=== PATIENT | female | born 1930 | race Caucasian/White ===

== ENCOUNTER → 2016-08-30 | Day surgery (SDC) | payer MEDICARE ==
[~2016-08-30] MED LIST: AMLODIPINE BESY10 MG PO; ARAVA10 MG PO; BIOTIN1000 MCG PO; BIOTIN10000 MC1 PO; BIOTIN800 MCG PO; BLOOD PRESSURE; CALCIUM + D 6001 TA1 PO; CALCIUM + VITAM1 TAB PO; CEFDINIR300 M1 PO; CELECOXIB200 MG PO; CLEOCIN HCL300 M1 PO; DOXYCYCLINE HY100 M3 PO; FISH OIL 1,0001 CAP PO; FOLIC ACID PO; FOLIC ACID1 MG PO; HORMONE PILL; HUMIBID-LA600 MG PO; HYDROCODON-ACE1 EAC5 PO; HYDROCODON-ACE1 EAC9 PO; HYDROCODONE/APA1 T16 PO; IRON1 TAB PO; IRON325 MG PO; LEFLUNOMIDE10 MG PO; LEVAQUIN PO; LISINOPRIL PO; LISINOPRIL10 MG PO; LODINE PO; LODINE400 MG PO; LORTAB 7.5-3251 EACH PO; LORTAB 7.5-5001 TAB PO; LOW DOSE ASPIRI81 M1 PO; METHOTREXATE2.5 MG PO; METRONIDAZOLE PO; MORPHINE IR PO; MORPHINE SULFAT15 M3 PO; MORPHINE SULFAT15 MG PO; NABUMETONE PO; NEXIUM PO; NORCO 10/325 TA1 TAB PO; NORVASC10 MG PO; OMEPRAZOLE20 M2 PO; OMEPRAZOLE40 M1 PO; ONE DAILY MULTI1 TA3 PO; PAIN RELIEF325 M1 PO; PANTOPRAZOLE SO40 MG PO; PATIENT'S PHARMACY; PLAQUENIL200 MG PO; PREDNISONE PO; PREDNISONE5 MG PO; PRINIVIL10 MG PO; PRINIVIL20 M1 PO; PRINIVIL40 MG PO; PROTONIX PO; RELAFEN PO; SIMVASTATIN5 MG PO; TESSALON PERLE100 M1 PO; VALTREX PO; VITAMIN B12-FO1 EACH PO; ZOCOR PO; ZOCOR5 MG PO; ZOFRAN PO; [UNRECOGNIZED DRUG - OTHER] PO
--- NOTE | ~2016-08-30 | OR ---
Unit #: [id number] #: [id number] Patient: JOSE MCNAIR [id number] [address] [address] [id number] O MR#: [id number] NAME: JOSE MCNAIR ROOM: Date of Procedure: 08/30/2016 Admission Date: 08/30/2016 Surgeon: Brandon Ramirez M.D. : 1930 Attending Physician: Brandon Ramirez M.D. Primary Care Physician: Nona Philippe M.D. OPERATIVE REPORT JOB NOTE: CC: PA[facility] CENTER PREOPERATIVE DIAGNOSES 1. Back pain. 2. Spinal stenosis. 3. Radiculopathy. 4. Degenerative disk disease. POSTOPERATIVE DIAGNOSES 1. Back pain. 2. Spinal stenosis. 3. Radiculopathy. 4. Degenerative disk disease. PROCEDURE PERFORMED Caudal epidural steroid injection with intravenous sedation and fluoroscopic guidance for needle localization. INDICATIONS FOR PROCEDURE The patient is an 86-year-old female with back and right hip and lower extremity pains. She has multilevel multifactorial severe degenerative disk and spine disease, severe stenosis most significant at the L4-L5 level and also significant facet disease. In the past, epidural steroid injection helped for almost 3 months. Repeat injection was extremely difficult due to multilevel multifactorial degenerative change and was not as helpful. Plan is to proceed with a trial via caudal approach to hopefully eased the procedure on the patient to get a better result. DESCRIPTION OF PROCEDURE The patient was placed in a prone position. Standard monitors were applied. Sterile prep and drape of the sacral area was performed. The skin then overlying the sacral hiatus was localized with 1% lidocaine. An 18-gauge Black-I Roboticstead needle was then advanced via the sacral hiatus and caudal epidural space. The patient did not complain of pain or paresthesia. After confirming proper positioning with loss of resistance with radiographic contrast and fluoroscopy, a dose of 80 mg of Depo-Medrol and 6 mL of 0.125% bupivacaine were deposited. The patient tolerated the procedure otherwise well and was discharged to the recovery room in stable condition. Dictated by... Unit #: [id number] #: [id number] Patient: JOSE MCNAIR Brandon Ramirez M.D. LHP/modl TD: 08/31/2016 03:32 JOB #: [id number] OPERATIVE REPORT Page 1 of 1 X Brandon Ramirez MD X PROCEDURE OPERATIVE NOTE
== END | disposition home or self-care (01) ==
LOC: CCSC 09:56
DX: M51.16 Intervertebral disc disorders with radiculopathy, lumbar region (principal); M48.06 Spinal stenosis, lumbar region; I10 Essential (primary) hypertension; K21.9 Gastro-esophageal reflux disease without esophagitis; M19.90 Unspecified osteoarthritis, unspecified site; M06.9 Rheumatoid arthritis, unspecified
CPT/HCPCS: J1040; J2250

== ENCOUNTER → 2016-09-03 | Outpatient (CLI) | payer MEDICARE ==
--- NOTE | ~2016-09-03 | CR21 ---
[facility]. [facility] A Service of [facility] & [facility] RADIOLOGY TEXT RESULTS PATIENT: JOSE MCNAIR LOCATION: [facility] : 31 UNIT #: [id number] AGE: [address]: Michael Segovia MD SEX: F ORDER DR: [id number] [address] [address] [id number] O MR#: [id number] Acc #: [id number] NAME: JOSE MCNAIR : 1930 SEX: F STUDY DATE/TIME: 09/03/2016 15:13 UNIT: [facility] ROOM: STUDY DESCRIPTION: CR Ankle Min 3 Views Rt Attending Physician: Michael Segovia M.D. Ordering Physician: Santa Hamilton Primary Care Physician: Nona Philippe M.D. MEDICAL IMAGING REPORT This report is preliminary unless electronic signature is present. EXAM Right ankle 3 views INDICATIONS 86-year female with right ankle pain and swelling for 5 weeks. COMPARISON No comparisons. FINDINGS Ankle mortise intact. No fracture. No dislocation. No soft tissue swelling. Extensive vascular calcifications. Minimal calcaneal spurring. IMPRESSION No fracture or malalignment. Dictated by... Reji Patterson M.D. THIS IS AN ELECTRONICALLY VERIFIED REPORT Reji Patterson M.D. at 09/05/2016 9:06 AM ARS/to TD: 09/04/2016 11:22 JOB #: [id number] MEDICAL IMAGING REPORT Page 1 of 1
--- NOTE | ~2016-09-03 | CR127 ---
[facility]. [facility] A Service of [facility] & [facility] RADIOLOGY TEXT RESULTS PATIENT: JOSE MCNAIR LOCATION: [facility] : 31 UNIT #: [id number] AGE: [address]: Michael Segovia MD SEX: F ORDER DR: [id number] [place] [id number] O MR#: [id number] Acc #: [id number] NAME: JOSE MCNAIR : 1930 SEX: F STUDY DATE/TIME: 09/03/2016 15:13 UNIT: [facility] ROOM: STUDY DESCRIPTION: CR Foot Complete Min 3 View Rt Attending Physician: Michael Segovia M.D. Ordering Physician: Physician Non-Staff Primary Care Physician: Nona Philippe M.D. MEDICAL IMAGING REPORT This report is preliminary unless electronic signature is present. EXAM Right foot 3 views INDICATION 86-year-old female with right foot pain and swelling for 5 weeks. COMPARISON No comparisons FINDINGS There is degenerative change at the first MTP joint. No fracture or dislocation. Calcaneal spurring. Extensive vascular calcifications. IMPRESSION Degenerative change. No fracture. Dictated by... Reji Patterson M.D. THIS IS AN ELECTRONICALLY VERIFIED REPORT Reji Patterson M.D. at 09/05/2016 9:06 AM SILVIA/sowmya TD: 09/04/2016 11:15 JOB #: [id number] MEDICAL IMAGING REPORT Page 1 of 1
== END | disposition home or self-care (01) ==
LOC: SRAD 15:02
DX: M25.571 Pain in right ankle and joints of right foot (principal)
CPT/HCPCS: 73610; 73630

== ENCOUNTER → 2016-11-01 | Outpatient (CLI) | payer MEDICARE ==
[2016-11-01 12:33] LABS: HEMOGLOBIN 9.5 gm/dL (12.0-16.0); MEAN CORPUSCULAR HEMOGLOBIN 30.5 PG (28-34); MEAN CORPUSCULAR HGB CONC 30.5 g/dL (30-36); MEAN PLATELET VOLUME 7.8 FL (6.5-11.5); RED BLOOD COUNT 3.1 X10e (3.90-5.30); WHITE BLOOD COUNT 7.8 X10e3 (4.0-10.5)
== END | disposition home or self-care (01) ==
LOC: CLAB 11:55
PROVIDERS: Physician Assistant
DX: M25.511 Pain in right shoulder (principal); R60.0 Localized edema
CPT/HCPCS: 36415; 84550; 85027

== ENCOUNTER 2016-11-18 13:44 | Observation (INO) | payer MEDICARE ==
--- NOTE | ~2016-11-18 | DS ---
Unit #: [id number] #: [id number] Patient: JOSE MCNAIR [id number] [address] [address] [id number] I MR#: [id number] NAME: JOSE MCNAIR. ROOM: 237 Age: 86 Sex: F Admission Date: 11/18/2016 : 1930 Discharge Date: 11/22/2016 Attending Physician: Nona Philippe M.D. Primary Care Physician: Nona Philippe M.D. DISCHARGE SUMMARY DISCHARGE DIAGNOSES 1. Back pain status post spinal surgery evaluation status post negative workup. 2. Hypertension. 3. Rheumatoid arthritis. 4. Dyslipidemia. DISCHARGE MEDICATIONS 1. Prednisone 5 mg b.i.d., home dose. 2. Methotrexate 15 mg p.o. weekly, home dose. 3. Amlodipine 10 mg at bedtime. 4. Simvastatin 5 mg daily. 5. Lisinopril 5 mg daily. 6. Arava 20 mg daily. 7. Aspirin 81 mg daily. 8. Home [place] 7.5/325 mg 1 or 2 tablets q.4-6 hours p.r.n. pain. 9. MS Contin 15 mg p.o. b.i.d. 10. Calcium with vitamin D daily. 11. Biotin 800 mcg daily. 12. Folic acid 1 mg daily. DISPOSITION Going home with home health. Refuses rehab. CONSULTS ON THIS HOSPITAL STAY 1. Dr. George, spinal surgery. 2. Dr. Ramirez, pain management. DIAGNOSTIC STUDIES IMAGING: Bone scan, which was basically unremarkable without any occult fracture. No abnormal uptake. CT lumbar spine - Compression fractures at L1 and L2 are not significantly changed from previous. Status post kyphoplasty at these levels. Advanced multilevel degenerative disc disease. Findings have progressed since 2014. Degenerative levoscoliosis. Extensive atherosclerotic disease. Chest x-ray - Negative portable chest. No active disease. HISTORY OF PRESENT HOSPITAL STAY Please refer to H and P done by my colleague, Dr. Philippe, for initial presentation on this female. ACTIVE PROBLEMS AND DIAGNOSES Unit #: [id number] #: [id number] Patient: JOSE MCNAIR Intractable back pain status post evaluation per spinal surgery status post evaluation per pain management. Continue conservative management. Continue home pain meds. Hypertension. Resume home medications. History of rheumatoid arthritis. Continue home meds as above. Dyslipidemia. Continue statin. Anemia of chronic disease. Discharge date H and H 7.9 and 25.9, which have been stable. On admission her hemoglobin was 8.4. DISPOSITION Again, going home with home health. Refuses rehab. OUTPATIENT FOLLOW-UP 1. With Dr. Philippe in 2-3 days. 2. With pain management. Dictated by... Ganesh Chavez M.D. AMY/tasha TD: 11/22/2016 12:35 JOB #: [id number] DISCHARGE SUMMARY Page 1 of 1 X Ganesh Chavez MD X DISCHARGE SUMMARY
--- NOTE | ~2016-11-18 | CT98 ---
[facility] A Service of [facility] & [facility] RADIOLOGY TEXT RESULTS PATIENT: JOSE MCNAIR LOCATION: C2A 237 : 31 UNIT #: [id number] AGE: [address]: Nona Philippe MD SEX: F ORDER DR: [id number] [facility] [address] [facility]. [place], [place] [address] [id number] I MR#: [id number] Acc #: [id number] NAME: JOSE MCNAIR. : 1930 SEX: F STUDY DATE/TIME: 11/19/2016 11:28 UNIT: [facility] ROOM: [facility] STUDY DESCRIPTION: CT Lumbar Spine Wo Cont Attending Physician: Nona Philippe M.D. Ordering Physician: Nona Philippe M.D. Primary Care Physician: Nona Philippe M.D. MEDICAL IMAGING REPORT This report is preliminary unless electronic signature is present EXAM Lumbar spine CT 11/19 INDICATIONS Low back pain for 1.5 weeks. Patient unable to lay flat on back. No known trauma. TECHNIQUE Axial noncontrast images were obtained through the lumbar spine. Multiplanar reformats were obtained. This CT exam was performed with one or more of the following radiation dose reduction techniques: automatic exposure control, adjustment of mA and/or kV according to patient size, and iterative reconstruction. COMPARISON Abdomen and pelvis reformatted images from 05/22/2014. FINDINGS There is approximately 11 degrees of levoscoliosis in the lumbar spine. Minimal anterolisthesis of L3 on L4 is present. There are old compression fractures of L1 and L2, status post kyphoplasty at both levels. These fractures do not appear significantly changed. There is progressive multilevel degenerative disease noted. There is diffuse atherosclerotic disease, and the abdominal aorta is quite tortuous. Fluid collection is again seen in the cul-de-sac; it measures slightly larger today at about 6.0 x 4.4 cm, where it was previously 5.7 x 3.6 cm. As noted previously, this may be associated with the round ligament; it could be related to prior surgery such as a seroma. It can also potentially reflect a bladder diverticulum. At L5-S1, there is a broad-based disc osteophyte complex. There is hypertrophic bilateral facet arthropathy with some ligamentum flavum hypertrophy. There is severe left-side and moderate to severe right-sided STS. [facility] A Service of [facility] & [facility] RADIOLOGY TEXT RESULTS PATIENT: JOSE MCNAIR LOCATION: [place] [address] : 31 UNIT #: [id number] AGE: [address]: Nona Philippe MD SEX: F ORDER DR: neural foraminal narrowing and there is borderline central stenosis. At L4-5, there is a broad-based posterior disc osteophyte complex with hypertrophic facet arthropathy and ligamentum flavum hypertrophy. Findings are progressive from prior and there is severe central canal stenosis with severe bilateral neural foraminal narrowing, left worse than right. Additionally, there is a new posterior osteophyte within the canal measuring about 13 mm in height by about 7 mm in depth by about 15 mm in width. The donor fracture site is not seen. This could potentially reflect a calcified disc extrusion or some calcification in the posterior longitudinal ligament. This results in severe central canal stenosis as well above the level of the disc. At L3-4, there is a broad-based posterior disc osteophyte complex with facet arthropathy and ligamentum flavum hypertrophy. There is moderate to severe central canal stenosis. There is severe right-side and moderate to severe left-side neural foraminal narrowing as well. At L2-3, there is facet arthropathy and ligamentum flavum hypertrophy. There is broad-based posterior disc bulge. There is severe right-side foraminal stenosis with moderate to severe left-side foraminal stenosis. There is moderate narrowing of the central canal. At L1-2, there is a broad-based posterior disc bulge. There is facet arthropathy and ligamentum flavum hypertrophy. There is moderate to severe bilateral foraminal narrowing, left greater than right. At T12-L1, mild posterior disc bulge is seen with facet arthropathy. There is some left-side foraminal and canal stenosis due to retropulsion of the posterior-superior endplate to the left of midline. This is a chronic finding. IMPRESSION 1. Compression fractures at L1 and L2 are not significantly changed. Patient is status post kyphoplasty at these levels. 2. Advanced multilevel degenerative disc disease and facet arthropathy as detailed above. Findings have progressed since 2013. 3. Degenerative levoscoliosis. 4. Extensive atherosclerotic disease. STAT * RESULT Dictated by... Meng Thompson Jr., M.D. THIS IS AN ELECTRONICALLY VERIFIED REPORT [facility]. [facility] A Service of [facility] RADIOLOGY TEXT RESULTS PATIENT: JOSE MCNAIR LOCATION: [place] [address] : [birth year] UNIT #: [id number] AGE: [address]: Nona Philippe MD SEX: F ORDER DR: Meng Thompson Jr., M.D. at 11/19/2016 10:33 PM RLK/alexis TD: 11/19/2016 15:40 JOB #: [id number] MEDICAL IMAGING REPORT Page 1 of 1 COPY
--- NOTE | ~2016-11-18 | A ---
[facility] & [facility] Nutrition Therapy DATE: 11/19/16 Patient: JOSE MCNAIR Physician: TALHA Address: [address] [place] [address] Room/Bed: [address] [place] [address], Zip: [place] [address] Admit Date: 11/18/16 Date of : 31 Height: 5 2 Weight: 117 53.5 NUTRITIONAL ASSESSMENT: REASON: 5 PTS AND CONSULT RE: UNPLANNED WEIGHT LOSS (40#) DX: 86 Y.O. FEMALE ADMITTED FOR INTRACTABLE BACK PAIN PMH: BACK PAIN, DEGENERATIVE SPINAL DISEASE Anthropometrics: 5'2", 117# (53 KG), BMI 21 Labs: K+ 3.4, CA++ 7.7, ALB 2.8 Meds: PREDNISONE, ARAVA, ZESTRIL, ZOFRAN, NACL I/O & Bowel function: NO I/O INFO AVAILABLE. LAST BM 11/17. NO EDEMA NOTED. Skin Integrity: WNL Assessment: CHART REVIEWED, EVENTS NOTED. PT SEEN FOR 5 PTS AND CONSULT RE: UNPLANNED WEIGHT LOSS. PER MEDITECH AND PT REPORT, PT HAS HAD ~40#/25% BW WEIGHT LOSS OVER THE PAST 2 YEARS. PT AND PT'S FAMILY REPORTED THAT THE PT HAS HAD A POOR APPETITE AND PO INTAKE FOR PAST 2+ YEARS. PT REPORTS DRINKING ENSURE AT HOME. RD CASE MANAGEMENT ASSOCIATE ENCOURGAED ADEQUATE CALORIE AND PROTEIN INTAKE BY ADDING SUPPLEMENTS DAILY. RD OFFERED TO ORDER SUPPLEMENTS AND PT AGREED TO ENSURE TID WITH MEALS. RD WILL REMAIN AVAILABLE. Dx: UNINTENTIONAL WEIGHT LOSS R/T POOR PO INTAKE AND APPETITE AEB PT REPORTED 40#/25% BW WEIGHT LOSS OVER PAST 2 YEARS Intervention: 1. ENSURE SUPPLEMENTS TID 2. REGULAR DIET Monitoring, Evaluation and Goals: 1. WEIGHT; PREVENT FURTHER UNINTENTIONAL WEIGHT LOSS, PROMOTE HEALTHY WEIGHT MAINTENANCE 2. PO INTAKE; TOLERATE >50% OF ALL MEALS/SUPPLEMENTS Recommendations: 1. ENSURE VANILLA TID WITH MEALS 2. ENCOURAGE ADEQUATE PO INTAKE 3. ADD MULTIVITAMIN TO PT'S CURRENT MEDICATION REGIMEN 2' ADVANCED AGE, DECREASED PO [facility] Nutrition Therapy DATE: 11/19/16 Patient: JOSE MCNAIR Physician: TALHA Address: [address] [place], [place] [address] Room/Bed: [address] [place] [address], Zip: [place] [address] Admit Date: 11/18/16 Date of : [birth year] Height: 5 2 Weight: [address] WILL F/U PER PROTOCOL PT IS AT MODERATE NUTRITIONAL RISK Respectfully, GABRIELA TORO, CULINARY ARTS TEACHER FRANCIA WOODS MS, RD, LD [employer] [facility] cc: client file
--- NOTE | ~2016-11-18 | NM4 ---
[facility] A Service of [facility] & [facility] RADIOLOGY TEXT RESULTS PATIENT: JOSE MCNAIR LOCATION: A 237- : 31 UNIT #: [id number] AGE: [address]: Nona Philippe MD SEX: F ORDER DR: [id number] [facility] [address] [facility]. [place], [place] [address] [id number] I MR#: [id number] Acc #: [id number] NAME: JOSE MCNAIR. : 1930 SEX: F STUDY DATE/TIME: 11/21/2016 11:30 UNIT: [facility] ROOM: [facility] STUDY DESCRIPTION: NM Bone or Joint 3 Phase Study Attending Physician: Nona Philippe M.D. Ordering Physician: Nona Philippe M.D. Primary Care Physician: Nona Philipep M.D. MEDICAL IMAGING REPORT This report is preliminary unless electronic signature is present EXAM Three-phase bone scan. HISTORY 86-year-old male with pain in tailbone region. Patient slid out of recliner 2 1/[address] lumbar spine 11/19/2016. TECHNIQUE Three-phase bone scan was form over the hips and pelvis following the intravenous injection of 23.3 mCi technetium 99m MDP. This was followed by whole-body anterior and posterior acquisitions. EXAM Examination demonstrates normal symmetric flow to the pelvis. Immediate blood-pool imaging demonstrates normal vascular pool. Normal renal uptake. Delayed-phase imaging demonstrates minimal increased uptake in the lumbar spine consistent with degenerative uptake. No focally intense uptake is identified to suggest an acute fracture. No definitive uptake identified within the pelvis, sacrum, or coccyx region to suggest a fracture. Degenerative uptake is noted within the knees bilaterally and also within the right ankle. Suspect degenerative uptake also noted within the left shoulder. Contiguous uptake is noted in multiple right posterior ribs near the costovertebral junction, most likely the sequelae of old trauma. Bilateral renal activity and normal bladder activity noted. IMPRESSION 1. No abnormal uptake identified within the sacrum and coccyx to suggest a fracture. 2. Only minimal increased uptake in the lumbar spine most likely degenerative in nature and no findings to suggest an acute lumbar STS. [facility] A Service of [facility] & [facility] RADIOLOGY TEXT RESULTS PATIENT: JOSE MCNAIR LOCATION: [facility] 237-01 : 31 UNIT #: [id number] AGE: [address]: Nona Philippe MD SEX: F ORDER DR: spine fracture. 3. Degenerative uptake within the knees, right ankle, left shoulder, as well as contiguous uptake in multiple right posterior ribs in the upper right chest, consistent with old trauma. Dictated by... Kathy [place] M.D. THIS IS AN ELECTRONICALLY VERIFIED REPORT Kathy [place] M.D. at 11/22/2016 7:26 AM LOUISE/ramana TD: 11/21/2016 17:28 JOB #: [id number] MEDICAL IMAGING REPORT Page 1 of 1 COPY
--- NOTE | ~2016-11-18 | HP ---
Unit #: [id number] #: [id number] Patient: JOSE MCNAIR [id number] [address] [place], [place] [address] [id number] I MR#: [id number] NAME: JOSE MCNAIR. ROOM: 237 Age: 86 Sex: F Admission Date: 11/18/2016 : 1930 Attending Physician: Nona Philippe M.D. Primary Care Physician: Nona Philippe M.D. HISTORY AND PHYSICAL CHIEF COMPLAINT Back pain. HISTORY OF PRESENTING ILLNESS An 86-year-old female who has a significant past medical history of hypertension, hyperlipidemia, rheumatoid arthritis, and degenerative disc disease, came because of intractable back pain which has been going on for the last two weeks or so. Last week while coming out of her recliner she kind of slid down and scooted herself up which she could not, so she thinks that that is what caused her to have worsening of the pain. Now, her daughter is also living with her. She is complaining of a lot of pain, level 10 out of 10. She is also complaining of pain radiating down her lower extremities, more on the right side than the left. She does not complain of urinary incontinence and does not complain of dizziness, syncopal episode, or seizure activity. No history of fever, chills, or rigors. PAST MEDICAL HISTORY 1. Hypertension. 2. Hyperlipidemia. 3. Rheumatoid arthritis. 4. 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 PAST SURGICAL HISTORY 1. Cholecystectomy. 2. Appendectomy. 3. Left ovarian cyst removal. 4. Partial hysterectomy. 5. Left breast cyst removal. 6. Right lower extremity cancer removal. 7. Epidural by Dr. Ramirez. HOME MEDICATIONS 1. Methotrexate 6 tablets p.o. weekly. 2. Folic acid 1 mg daily. 3. Prinivil 5 mg daily. 4. Simvastatin 5 mg daily. 5. Norvasc 10 mg at bedtime. 6. Biotin 800 mcg daily. 7. Aspirin 81 mg daily. 8. Arava 20 mg daily. 9. Prednisone 5 mg twice daily. 10. Morphine 15 mg twice daily. 11. Hydrocodone 7.5/325 at 1 tablet daily. Unit #: [id number] #: [id number] Patient: JOSE MCNAIR 12. Calcium plus vitamin D daily. SOCIAL HISTORY Patient lives at home. She has her daughter and son living with her. No history of smoking, alcohol, or drug abuse. She is a . FAMILY HISTORY Patient's mother at the age of 77 from a cerebral hemorrhage. Her father with myocardial infarction at the age of 59. ALLERGIES Codeine. REVIEW OF SYSTEMS No history of chest pain, no history of shortness of breath, no history of dizziness or syncopal episode, no history of abdominal pain, no nausea or vomiting, no constipation or diarrhea, and no leg swelling. The rest is as per History of Presenting Illness. PHYSICAL EXAMINATION GENERAL: Patient is lying in bed, seems to be uncomfortable, complaining of pain level 7 to 8 out of 10. VITAL SIGNS: Temperature is 99.6, pulse 94, respiratory rate 15, blood pressure 138/56, and O2 saturation 99%. HEENT: Head is normocephalic. Eye movements are normal. Pale conjunctivae. NECK: Supple. CHEST: Fair air entry. No additional sounds. CARDIOVASCULAR: S1 and S2 positive. Regular rhythm. ABDOMEN: Soft. EXTREMITIES: Negative edema. BACK: Significant pain in the back. NEUROLOGIC: Exam was limited. DIAGNOSTIC STUDIES LABORATORY: INR 1.1. Sodium 137, potassium 3.4, chloride 102, BUN 13, creatinine 0.6, and calcium 7.7. C-reactive protein is 4.2. Urinalysis was done and was normal. WBC 6.6, hemoglobin 8.4, hematocrit 27.3, and platelet count of 130,000. Blood cultures are negative. IMAGING: Chest x-ray was done which showed a negative portal chest with no active disease. ASSESSMENT Patient is being admitted to medical/surgical unit with: 1. Intractable back pain with a history of degenerative disc disease. 2. History of chronic back pain, status post epidural by Dr. Ramirez. 3. Hypertension. 4. Hypokalemia. 5. Hyperlipidemia. 6. Anemia. 7. Rheumatoid arthritis. 8. History of squamous cell cancer. PLAN Admit to med/surg. Dr. George has been consulted. Pain management will be done with IV Dilaudid. MRI has been ordered. DVT prophylaxis will be done. The plan of care has been discussed with the patient at length. Unit #: [id number] #: [id number] Patient: JOSE MCNAIR Discussed with Dr. George about the plan of care. Please refer to progress note for further orders. Dictated by Janette Cruz TD: 11/19/2016 14:23 JOB #: [id number] HISTORY AND PHYSICAL Page 1 of 1 X Nona Philippe MD X HISTORY AND PHYSICAL
--- NOTE | ~2016-11-18 | CR72 ---
[facility] A Service of [facility] & [facility] RADIOLOGY TEXT RESULTS PATIENT: JOSE MCNAIR LOCATION: [place] [address] : 31 UNIT #: [id number] AGE: [address]: Nona Philippe MD SEX: F ORDER DR: [id number] [facility] [address] [facility]. [place], [place] [address] [id number] I MR#: [id number] Acc #: [id number] NAME: JOSE MCNAIR. : 1930 SEX: F STUDY DATE/TIME: 11/18/2016 14:38 UNIT: [facility] ROOM: [id number] STUDY DESCRIPTION: CR Chest Single View Portable Attending Physician: Dave Lance M.D. Ordering Physician: Kim Power M.D. Primary Care Physician: Nona Philippe M.D. MEDICAL IMAGING REPORT This report is preliminary unless electronic signature is present EXAM Portable chest HISTORY SUPPLIED Shortness of breath for 2 weeks. Low back pain. FINDINGS AP view was obtained. Cardiac size in the patient is stable. Vascular pattern of the chest is normal. Lungs are clear. Note is made of a small hiatal hernia. CONCLUSION Negative portable chest, no active disease. Dictated by... Dequan Curran M.D. THIS IS AN ELECTRONICALLY VERIFIED REPORT Dequan Curran M.D. at 11/22/2016 7:15 AM DESTINY/radu TD: 11/18/2016 22:03 JOB #: [id number] MEDICAL IMAGING REPORT Page 1 of 1 COPY
[~2016-11-18 13:44] MED LIST changes: -CEFDINIR300 M1 PO; -CELECOXIB200 MG PO; -HUMIBID-LA600 MG PO; -HYDROCODON-ACE1 EAC9 PO; -IRON325 MG PO; -LISINOPRIL PO; -PANTOPRAZOLE SO40 MG PO; -PATIENT'S PHARMACY; -TESSALON PERLE100 M1 PO; -ZOCOR PO
[2016-11-18 15:01] LABS: BASOPHIL# 0.1 X10e3 (0-0.3); BASOPHIL% 1.5 % (0-2.5); EOSINOPHIL# 0.1 X10e3 (0-0.7); EOSINOPHIL% 1.1 % (0.0-7.0); HEMATOCRIT 27.3 % (35.0-45.0); HEMOGLOBIN 8.4 gm/dL (12.0-16.0); INR 1.1; LYMPHOCYTE# 0.6 X10e3 (1.0-3.5); LYMPHOCYTE% 9.4 % (17.0-45.0); MEAN CORPUSCULAR HEMOGLOBIN 30.3 PG (28-34); MEAN CORPUSCULAR HGB CONC 30.6 g/dL (30-36); MEAN PLATELET VOLUME 8.1 FL (6.5-11.5); MONOCYTE# 0.9 X10e3 (0-1.0); NEUTROPHIL# 4.9 X10e3 (1.5-7.1); PLATELET COUNT 130 X10e3 (140-420); PROTHROMBIN TIME (PATIENT) 11.4 SECONDS (9.6-11.5); RED BLOOD COUNT 2.76 X10e (3.90-5.30); WHITE BLOOD COUNT 6.6 X10e3 (4.0-10.5)
[2016-11-18 15:06] LABS: DIFF IND YES
[2016-11-18 15:11] LABS: URINE SOURCE CLEAN CATCH
[2016-11-18 15:16] LABS: ALBUMIN SERUM 2.8 g/dL (3.5-5.0); BILIRUBIN, DIRECT 0.3 mg/dL (0.0-0.2); BILIRUBIN,INDIRECT 0.6 mg/dL (0.0-0.9); BILIRUBIN,TOTAL 0.9 mg/dL (0.2-2.0); BUN/CREATININE RATIO 21.66; CALCIUM SERUM 7.7 mg/dL (8.4-10.2); CREATININE SERUM 0.6 mg/dL (0.6-1.4); GLOM FILT RATE Estimated 83.1 mL/min (>60); POTASSIUM 3.4 mmol/L (3.5-5.1); PROTEIN TOTAL SERUM 5.1 g/dL (6.0-8.3)
[2016-11-18 15:34] LABS: URINE APPEARANCE CLEAR; URINE BILIRUBIN NEG (NEG); URINE BLOOD NEG (NEG); URINE COLOR YELLOW; URINE GLUCOSE NEG (NEG); URINE KETONE NEG (NEG); URINE LEUKOCYTE ESTERASE NEG (NEG); URINE NITRATE NEG (NEG); URINE PH 6.5 (5-8); URINE PROTEIN NEG (NEG); URINE SPECIFIC GRAVITY 1.013 (1.003-1.035); URINE UROBILINOGEN 0.2 MG/DL (NEG)
[2016-11-18 15:48] LABS: ANISOCYTOSIS MOD; PLATELET ESTIMATE NORMAL (NORMAL)
[2016-11-18 15:49] LABS: CULTURE INDICATED? NO
[2016-11-22 06:50] LABS: HEMATOCRIT 25.9 % (35.0-45.0); HEMOGLOBIN 7.9 gm/dL (12.0-16.0); MEAN CELL VOLUME 97.1 FL (83-96); MEAN CORPUSCULAR HEMOGLOBIN 29.6 PG (28-34); MEAN CORPUSCULAR HGB CONC 30.5 g/dL (30-36); MEAN PLATELET VOLUME 8.7 FL (6.5-11.5); RED BLOOD COUNT 2.67 X10e (3.90-5.30); RED CELL DISTRIBUTION WIDTH 20.5 % (11.0-15.5); WHITE BLOOD COUNT 3.9 X10e3 (4.0-10.5)
[2016-11-22 07:05] LABS: CALCIUM SERUM 8.9 mg/dL (8.4-10.2); CREATININE SERUM 0.6 mg/dL (0.6-1.4); GLOM FILT RATE Estimated 83.1 mL/min (>60); POTASSIUM 4.8 mmol/L (3.5-5.1)
[2016-11-22] MEDS ORDERED: HYDROCODON-ACE1 EAC9 PO (12:49)
== END 2016-11-22 15:36 | disposition home or self-care (01) ==
LOC: CED 13:44 → CEDOF 21:20 → C2A 21:20 → CEDOF 21:20 → CED 21:20 → C2A 21:20 → CEDOF 21:31 → C2A 21:31 → CED 21:31 → C2A 23:15 → CEDOF 23:15 → C2A 23:20
PROVIDERS: Emergency Medicine; Hospitalist
DX: M54.9 Dorsalgia, unspecified (principal); M51.16 Intervertebral disc disorders with radiculopathy, lumbar region; M06.9 Rheumatoid arthritis, unspecified; M48.56XS Collapsed vertebra, not elsewhere classified, lumbar region, sequela of fracture; M41.9 Scoliosis, unspecified; M12.88 Other specific arthropathies, not elsewhere classified, other specified site; M15.8 Other polyosteoarthritis; I10 Essential (primary) hypertension; E78.5 Hyperlipidemia, unspecified; D64.9 Anemia, unspecified; I70.90 Unspecified atherosclerosis; E87.6 Hypokalemia; Z79.82 Long term (current) use of aspirin; Z79.899 Other long term (current) drug therapy; Z79.891 Long term (current) use of opiate analgesic; Z85.828 Personal history of other malignant neoplasm of skin; Z82.49 Family history of ischemic heart disease and other diseases of the circulatory system; Z84.89 Family history of other specified conditions; Z88.5 Allergy status to narcotic agent; Z90.711 Acquired absence of uterus with remaining cervical stump; Z98.890 Other specified postprocedural states; Z90.49 Acquired absence of other specified parts of digestive tract
CPT/HCPCS: 36415; 51701; 71010; 72131; 78315; 80048; 80076; 81003; 85025; 85027; 85610; 85652; 86140; 87040; 96372; 96374; 96375; 96376; 97161; 97166; 99284; A9503; G0378; G8978-GP; G8979-GP; G8980-GP; G8987-GO; G8988-GO; G8989-GO; J1170; J1650; J2270

== ENCOUNTER → 2017-01-10 | Day surgery (SDC) | payer MEDICARE ==
[~2017-01-10] MED LIST changes: +CEFDINIR300 M1 PO; +CELECOXIB200 MG PO; +HUMIBID-LA600 MG PO; +HYDROCODON-ACE1 EAC9 PO; +IRON325 MG PO; +LISINOPRIL PO; +PANTOPRAZOLE SO40 MG PO; +PATIENT'S PHARMACY; +TESSALON PERLE100 M1 PO; +ZOCOR PO
--- NOTE | ~2017-01-10 | OR ---
Unit #: [id number] #: [id number] Patient: JOSE MCNAIR [id number] [address] [address] [id number] MR#: [id number] NAME: JOSE MCNAIR ROOM: Date of Procedure: 01/10/2017 Admission Date: 01/10/2017 Surgeon: Brandon Ramirez M.D. : 1930 Attending Physician: Brandon Ramirez M.D. Primary Care Physician: Nona Philippe M.D. OPERATIVE REPORT JOB NOTE: CC: [facility]. PREOPERATIVE DIAGNOSES Back pain, radiculopathy, spinal stenosis, degenerative disk disease. POSTOPERATIVE DIAGNOSES Back pain, radiculopathy, spinal stenosis, degenerative disk disease. PROCEDURE PERFORMED Caudal epidural steroid injection with intravenous sedation and fluoroscopic guidance for needle localization. INDICATIONS FOR PROCEDURE The patient is an 86-year-old female with return of back and right hip and lower extremity pain. She is status post thoracic fusion. She has had vertebroplasty. She has multiple level degenerative disk disease and spine disease, severe stenosis and facet disease. She has done fairly well with single epidural steroid injections, though due to the extensive spinal disease, a translaminar approach is no longer feasible. Caudal approach has been unsuccessful giving a 3+ months of improvement. Last injection was done 4 months ago. She had a return of symptoms over the last 2 weeks ago. Plan is to repeat a caudal epidural. DESCRIPTION OF PROCEDURE The patient was placed in a prone position. Standard monitors were applied. 1 mg of Versed was given for sedation and anxiolysis, which was adequate. Vital signs remained stable. Sterile prep and drape then of the sacral area was performed. The skin overlying the sacral hiatus was localized with 1% lidocaine. An 18-gauge oLyfetead needle was then advanced via the sacral hiatus into the caudal epidural space. Position was confirmed with loss of resistance technique and with fluoroscopy and radiographic contrast. After confirming proper positioning, a dose of 80 mg of Depo-Medrol and 6 mL of 0.125% bupivacaine were deposited. The patient tolerated the procedure otherwise well and was discharged to the recovery room in stable condition. Dictated by... Brandon Ramirez M.D. LHP/modl Unit #: [id number] #: [id number] Patient: JOSE MCNAIR Katherin TD: 01/10/2017 12:38 JOB #: [id number] OPERATIVE REPORT Page 1 of 1 X Brandon Ramirez MD X PROCEDURE OPERATIVE NOTE
== END | disposition home or self-care (01) ==
LOC: CCSC 10:50
DX: M51.17 Intervertebral disc disorders with radiculopathy, lumbosacral region (principal); M48.07 Spinal stenosis, lumbosacral region; M06.9 Rheumatoid arthritis, unspecified; M19.90 Unspecified osteoarthritis, unspecified site; I10 Essential (primary) hypertension; K21.9 Gastro-esophageal reflux disease without esophagitis; Z88.5 Allergy status to narcotic agent; Z79.82 Long term (current) use of aspirin; Z79.899 Other long term (current) drug therapy
CPT/HCPCS: J1040; J2250

== ENCOUNTER 2017-01-23 17:35 | Emergency (ER) | payer MEDICARE ==
[~2017-01-23] VITALS: Ht 154.9 cm; Wt 51.2 kg
--- NOTE | ~2017-01-23 | EKG ---
PATIENT: JOSE MCNAIR UNIT #: [id number] Ventricular Rate: 77 BPM Atrial Rate: 77 BPM P-R Interval: 170 ms QRS Duration: 68 ms Q-T Interval: 372 ms QTC Calculation(Bezet): 420 ms P Brinkley: 61 degrees Calculated R Brinkley: 22 degrees Calculated T Brinkley: 48 degrees Diagnosis Line: Normal sinus rhythm Diagnosis Line: Normal ECG Diagnosis Line: When compared with ECG of 23-MAY-2016 00:37, Diagnosis Line: Premature ventricular complexes are no longer Diagnosis Line: Present Diagnosis Line: Diagnosis Line: Confirmed by ZUHAIR BUITRAGO MD ([id number]) on Diagnosis Line: 01/23/2017 10:52:42 PM INTERPRETING MD: PHUONG
[~2017-01-23 17:35] MED LIST changes: -CEFDINIR300 M1 PO; -CELECOXIB200 MG PO; -HUMIBID-LA600 MG PO; -IRON325 MG PO; -LISINOPRIL PO; -PANTOPRAZOLE SO40 MG PO; -PATIENT'S PHARMACY; -TESSALON PERLE100 M1 PO; -ZOCOR PO
[2017-01-23 18:41] LABS: EOSINOPHIL% 0.1 % (0.0-7.0); HEMATOCRIT 24.8 % (35.0-45.0); HEMOGLOBIN 7.7 gm/dL (12.0-16.0); LYMPHOCYTE# 0.2 X10e3 (1.0-3.5); LYMPHOCYTE% 5.5 % (17.0-45.0); MEAN PLATELET VOLUME 7.2 FL (6.5-11.5); MONOCYTE# 0.1 X10e3 (0-1.0); NEUTROPHIL# 2.9 X10e3 (1.5-7.1); NEUTROPHIL% 91.4 % (40-75); PLATELET COUNT 167 X10e3 (140-420); RED BLOOD COUNT 2.48 X10e (3.90-5.30); RED CELL DISTRIBUTION WIDTH 25.2 % (11.0-15.5); WHITE BLOOD COUNT 3.2 X10e3 (4.0-10.5)
[2017-01-23 18:51] LABS: PARTIAL THROMBOPLASTIN TIME 22.8 SECONDS (23.5-31.3); PROTHROMBIN TIME (PATIENT) 10.6 SECONDS (10.0-11.7)
[2017-01-23 18:55] LABS: DIFF IND YES; PLATELET ESTIMATE NORMAL (NORMAL)
[2017-01-23 18:56] LABS: RBC NORMAL YES
[2017-01-23 18:58] LABS: ALBUMIN SERUM 3.2 g/dL (3.5-5.0); ANISOCYTOSIS MOD; BILIRUBIN, DIRECT 0.4 mg/dL (0.0-0.2); BILIRUBIN,TOTAL 0.4 mg/dL (0.2-2.0); BUN/CREATININE RATIO 26.25; CALCIUM SERUM 7.8 mg/dL (8.4-10.2); CREATININE SERUM 0.8 mg/dL (0.6-1.4); GLOM FILT RATE Estimated 67.3 mL/min (>60); POIKILOCYTOSIS MOD; POTASSIUM 4.5 mmol/L (3.5-5.1); PROTEIN TOTAL SERUM 5.4 g/dL (6.0-8.3)
[2017-01-23 19:14] LABS: POC - CKMB <1.0 ng/mL (0.0-7.9); POC - TROPONIN <0.05 ng/mL (<=0.05)
== END 2017-01-23 19:43 | disposition home or self-care (01) ==
LOC: CED 17:35
PROVIDERS: Emergency Medicine
DX: D64.9 Anemia, unspecified (principal); E78.5 Hyperlipidemia, unspecified; K21.9 Gastro-esophageal reflux disease without esophagitis; Z88.5 Allergy status to narcotic agent
CPT/HCPCS: 36415; 80048; 80076; 82553; 84484; 85025; 85610; 85730; 86850; 86900; 86901; 93005; 99284

== ENCOUNTER 2017-01-25 16:03 | Inpatient (IN) | payer MEDICARE ==
[~2017-01-25] VITALS: Ht 154.9 cm; Wt 60.5 kg
--- NOTE | ~2017-01-25 | OR ---
Unit #: [id number] #: [id number] Patient: JOSE MCNAIR [id number] [address] [address] [id number] I MR#: [id number] NAME: JOSE MCNAIR ROOM: [facility] Date of Procedure: 02/04/2017 Admission Date: 01/25/2017 Surgeon: Cammie Matias M.D. : 1930 Attending Physician: Ganesh Chavez M.D. Primary Care Physician: Nona Philippe M.D. PROCEDURE OPERATIVE NOTE PROCEDURE PERFORMED Left intrajugular venous catheter placement with ultrasound guidance. PREOPERATIVE DIAGNOSIS Severe sepsis. POSTOPERATIVE DIAGNOSIS Pneumonia. PREMEDICATIONS None. DESCRIPTION OF PROCEDURE An informed consent was obtained from the patient's son after explaining the benefits and risks of this procedure. The patient was prepped and positioned in a proper way. Then her left neck was cleaned with chlorhexidine. Then with the ultrasound guidance, a needle was inserted in the left IJ until blood flow was obtained. Then a guidewire was inserted and the needle was removed. Then the catheter was inserted over the guidewire after it was dilated with the dilator. Guidewire was removed and the catheter was flushed appropriately and sutured in place. Biopatch and clean dressing were applied. A STAT chest x-ray is pending at the time of dictation. Dictated by... Janette Pittman TD: 02/04/2017 12:25 JOB #: [id number] Unit #: [id number] #: [id number] Patient: JOSE MCNAIR PROCEDURE OPERATIVE NOTE Page 1 of 1 X CAMMIE RONQUILLO MD PROCEDURE OPERATIVE NOTE
--- NOTE | ~2017-01-25 | FU ---
[facility] Nutrition Therapy DATE: 02/04/17 Patient: JOSE MCNAIR Physician: ANDREA Address: [address] Room/Bed: [address], Zip: [place] [address] Admit Date: 01/25/17 Date of : 31 Height: 5 1 Weight: 97 44 NUTRITION MONITORING/FOLLOW-UP: Reason: PT SEEN FOR FOLLOW-UP/CONSULT RE: ENTERAL NUTRITION DX: GI BLEED, SYMPTOMATIC ANEMIA Anthropometrics: 5'1", WT: 97-113# SINCE ADMIT (44KG-51 KG), BMI: 18.3-21.3 Labs: CA+:6.3, ALB: 1.9, MG+:1.5 Meds: FENTANYL, VERSED, MEGACE ORAL, ZOFRAN, PROTONIX, PREDNISONE, FOLIC ACID, FUROSEMIDE I&O's: 2860/1225 Skin: STAGE 2 PRESSURE ULCER BUTTOCKS Estimated Nutrition Needs: PER AVERAGE WEIGHT: 105# (48 KG) 6272-6017 KCAL(30-35 KCAL/KG BW) 48-62 G [place] O (1.0-1.3 G PRO/KG BW) FLUIDS CONSISTENT W/KCAL NEEDS OR MANAGE PER MD Assessment: CHART REVIEWED AND EVENTS NOTED. PT SEEN FOR FOLLOW-UP/CONSULT RE: ENTERAL NUTRITION SUPPORT. PT CURRENTLY INTUBATED AND SEDATED 2' RESPIRATORY FAILURE. PT WAS TRANSFERRED FROM 3A TO ICU OVER THE WEEKEND 2' RESP FAILURE. NO FAMILY IN ROOM AT THIS TIME. PER RN AND CHART, DHT IN PLACE AND NEED FOR ENTERAL NUTRITION SUPPORT RECOMMENDATIONS. RD TO FOLLOW. SEE RECOMMENDATIONS BELOW. Dx: UNINTENTIONAL WEIGHT LOSS R/T DECREASED PO INTAKE & APPETITE, PMH AEB PT REPORT ABOVE, ~22# OR ~30# WEIGHT LOSS NOTED IN PAST 6 MONTHS.-ACTIVE NEW Dx: INADEQUATE ORAL INTAKE R/T CURRENT CLINICAL CONDITION-RESP FAILURE, VENT DEPENDENCE AEB NPO STATUS. Intervention: 1. NPO 2. RD CONSULT Monitoring, Evaluation and Goals: 1. ORAL INTAKE; CONSUME/TOLERATE >50% OF MEALS AND SUPPLEMENTS-NOT MET/UNMEASURED 2. WEIGHTS; PREVENT FURTHER WEIGHT LOSS; PROMOTE HEALTHY WEIGHT MAINTENANCE-NOT MET (CURRENT [place] WEIGHT IS ~97#?) 3. LABS; WNL-IN PROGRESS 4. SKIN; PROMOTE SKIN HEALING-IN PROGRESS (WOUND CARE FOLLOWING) NEW GOALS (IN ADDITION TO ABOVE) [facility] Nutrition Therapy DATE: 02/04/17 Patient: JOSE MCNAIR Physician: ANDREA Address: [address] Room/Bed: [address], Zip: [place] [address] Admit Date: 01/25/17 Date of : 31 Height: 5 1 Weight: 97 44 1. ENTERAL NUTRITION; ONCE INITIATED, PROVIDE >80% TOTAL VOLUME X 24 HOURS MONITOR: -TF INITIATION -TF RATE/RESIDUALS -WEIGHTS -LABS Recommendations: 1. ONCE MEDICALLY FEASIBLE, BEGIN ALTERNATIVE NUTRITION SUPPORT OF JEVITY 1.5 @ 20 ML/HR, ADVANCE 10 ML q 6 HOURS TO GOAL RATE OF 40 ML/HR -PROVIDES 1440 KCAL, 61 G PRO, 730 ML FREE H20 ADD FREE H20 FLUSHES OF 180 ML QID TO MEET PT'S CURRENT ESTIMATED FLUID NEEDS OR MANAGE PER MD 2. ONCE MEDICALLY FEASIBLE AND PT EXTUBATED, ADVANCE DIET PER LAUNDRY BAG PUNCH OPERATOR + MECHANICAL GROUND (PRIOR DIET) RD WILL F/U PER PROTOCOL PT IS SEVERELY COMPROMISED Respectfully, Yumiko Eldridge, RD, LD Food and Nutritional Services [facility] cc: client file
--- NOTE | ~2017-01-25 | OR ---
Unit #: [id number] #: [id number] Patient: JOSE MCNAIR [id number] [address] [place], [place] [address] [id number] I MR#: [id number] NAME: JOSE MCNAIR ROOM: [facility] Date of Procedure: 02/04/2017 Admission Date: 01/25/2017 Surgeon: Cammie Matias M.D. : 1930 Attending Physician: Ganesh Chavez M.D. Primary Care Physician: Nona Philippe M.D. PROCEDURE OPERATIVE NOTE PROCEDURE PERFORMED Diagnostic bronchoscopy with bronchoalveolar lavage. PREOPERATIVE DIAGNOSES 1. Respiratory failure. 2. Pneumonia. POSTOPERATIVE DIAGNOSIS Pneumonia. FINDINGS Clean airways with no significant secretions or endobronchial mass. PREMEDICATION Patient is already on the vent status post etomidate and succinylcholine. COMPLICATIONS None. DESCRIPTION OF THE PROCEDURE An informed consent was obtained from the patient's son after explaining the benefit and risk of this procedure. Patient was prepped and positioned in a proper way. Then the bronchoscope was advanced through the ET tube and inside the trachea which appeared normal with no endobronchial lesions or secretions. The bronchoscope was advanced into the right mainstem and the right upper lobe, right middle lobe, and right lower lobe were examined which appeared normal with no endobronchial masses or secretions. Bronchoalveolar lavage was obtained from the right lower lobe. The bronchoscope was retracted and then re-advanced into the left main bronchus and the left upper lobe, lingula, and left lower lobe were examined which appeared normal with no endobronchial mass and secretions. The bronchoscope was retracted out and patient tolerated her procedure well with no immediate complications. Dictated by... Cammie Matias M.D. EA/rosalind Unit #: [id number] #: [id number] Patient: JOSE MCNAIR TD: 02/04/2017 10:54 JOB #: [id number] PROCEDURE OPERATIVE NOTE Page 1 of 1 X CAMMIE RONQUILLO MD X PROCEDURE OPERATIVE NOTE
--- NOTE | ~2017-01-25 | CR7 ---
[facility] A Service of [facility] & [facility] RADIOLOGY TEXT RESULTS PATIENT: JOSE MCNAIR LOCATION: [address]12 : [birth year] UNIT #: [id number] AGE: [address]: Ganesh Chavez MD SEX: F ORDER DR: [id number] [facility] [address] [facility]. [place], [place] [address] [id number] I MR#: [id number] Acc #: [id number] NAME: JOSE MCNAIR : 1930 SEX: F STUDY DATE/TIME: 02/09/2017 22:12 UNIT: [facility] ROOM: [facility] STUDY DESCRIPTION: CR Abdomen Single AP View Attending Physician: Ganesh Chavez M.D. Ordering Physician: Ganesh Chavez M.D. Primary Care Physician: Nona Philippe M.D. MEDICAL IMAGING REPORT This report is preliminary unless electronic signature is present EXAM Abdominal series INDICATIONS Dobbhoff tube placement PROCEDURE Supine view of the abdomen COMPARISON 02/08/2017 at 20:09 hours FINDINGS Dobbhoff tube is just at the GE junction. Otherwise stable. IMPRESSION Tip of Dobbhoff tube is at the GE junction. Suggest more distal advancement. Dictated by... Zheng Jerez M.D. THIS IS AN ELECTRONICALLY VERIFIED REPORT Zheng Jerez M.D. at 02/11/2017 10:05 PM EED/to TD: 02/10/2017 13:03 JOB #: [id number] MEDICAL IMAGING REPORT Page 1 of 1 COPY
--- NOTE | ~2017-01-25 | OR ---
Unit #: [id number] #: [id number] Patient: JOSE MCNAIR [id number] [address] [address] [id number] MR#: [id number] NAME: JOSE MCNAIR ROOM: [facility] Date of Procedure: 02/04/2017 Admission Date: 01/25/2017 Surgeon: Cammie Matias M.D. : 1930 Attending Physician: Ganesh Chavez M.D. Primary Care Physician: Nona Philippe M.D. PROCEDURE OPERATIVE NOTE PROCEDURE PERFORMED Direct laryngoscope intubation. PREOP DIAGNOSIS Respiratory distress. POSTOP DIAGNOSIS Pneumonia. PREMEDICATIONS 1. Etomidate 20 mg IV x1. 2. Succinylcholine 100 mg IV x1. COMPLICATIONS None. DESCRIPTION OF THE PROCEDURE Informed consent was obtained from the patient after explaining the benefits and risks of this intervention. The patient agreed to be intubated. The patient was prepped and positioned in a proper way, and then she was premedicated with the above medications. Then, with the (1) , size 3 view grade 3 of her vocal cord was obtained. Then, ET tube, size 7.5 cm, was inserted with no complications. The cuff was inflated, and CO2 color change was obtained. Good bilateral breath sounds were heard, also. The ET tube was connected to the vent, and chest x-ray is pending at the time of dictation. Dictated by... Cammie Matias M.D. EA/tasha TD: 02/04/2017 11:33 JOB #: [id number] Unit #: [id number] #: [id number] Patient: JOSE MCNAIR PROCEDURE OPERATIVE NOTE Page 1 of 1 X CAMMIE RONQUILLO MD X PROCEDURE OPERATIVE NOTE
--- NOTE | ~2017-01-25 | CR72 ---
[facility] A Service of [facility] & [facility] RADIOLOGY TEXT RESULTS PATIENT: JOSE MCNAIR LOCATION: [address]12 : [birth year] UNIT #: [id number] AGE: [address]: Ganesh Chavez MD SEX: F ORDER DR: [id number] [facility] [address] [place], [place] [address] [id number] I MR#: [id number] Acc #: [id number] NAME: JOSE MCNAIR : 1930 SEX: F STUDY DATE/TIME: 02/06/2017 7:59 UNIT: [facility] ROOM: [facility] STUDY DESCRIPTION: CR Chest Single View Portable Attending Physician: Ganesh Chavez M.D. Ordering Physician: Catalina Robins M.D. Primary Care Physician: Nona Philippe M.D. MEDICAL IMAGING REPORT This report is preliminary unless electronic signature is present EXAM Portable chest INDICATION Shortness of breath for 12 days. Followup support lines and tubes. COMPARISON Yesterday FINDINGS Stable left IJ central venous catheter. The endotracheal tube has been removed. Increased atelectasis or consolidation within the left lung base. Overall decreased inspiratory volume. Additional changes in the lungs are stable. Heart size stable. NG tube has been removed. IMPRESSION 1. Removal of ET tube and NG tube. 2. Decreased inspiratory volume. 3. Increased atelectasis or consolidation within the left base and not mentioned above, also within the right. Exam is otherwise unchanged. Dictated by... Reji Patterson M.D. THIS IS AN ELECTRONICALLY VERIFIED REPORT Reji Patterson M.D. at 02/07/2017 9:30 AM Cyndee TD: 02/06/2017 09:42 JOB #: [id number] MEDICAL IMAGING REPORT Page 1 of 1 COPY
--- NOTE | ~2017-01-25 | EKG ---
PATIENT: JOSE MCNAIR UNIT #: [id number] Ventricular Rate: 137 BPM Atrial Rate: 137 BPM P-R Interval: 136 ms QRS Duration: 64 ms Q-T Interval: 280 ms QTC Calculation(Bezet): 422 ms P Oxford: 55 degrees Calculated T Oxford: 56 degrees Diagnosis Line: Sinus tachycardia with Premature supraventricular Diagnosis Line: complexes Diagnosis Line: Low voltage QRS Diagnosis Line: Borderline ECG Diagnosis Line: When compared with ECG of 26-JAN-2017 11:32, Diagnosis Line: Premature supraventricular complexes are now Diagnosis Line: Present Diagnosis Line: Vent. rate has increased BY 66 BPM Diagnosis Line: Confirmed by ORNY MONTEZ MD ([id number]) on 02/04/2017 Diagnosis Line: 7:57:20 PM INTERPRETING MD: MELIDA GIRALDO
--- NOTE | ~2017-01-25 | EKG ---
PATIENT: JOSE MCNAIR UNIT #: [id number] Ventricular Rate: 71 BPM Atrial Rate: 71 BPM P-R Interval: 178 ms QRS Duration: 72 ms Q-T Interval: 384 ms QTC Calculation(Bezet): 417 ms P Foster: 12 degrees Calculated R Foster: 21 degrees Calculated T Foster: 6 degrees Diagnosis Line: Normal sinus rhythm Diagnosis Line: Normal ECG Diagnosis Line: Diagnosis Line: Confirmed by RONY MONTEZ MD ([id number]) on 01/27/2017 Diagnosis Line: 5:54:16 PM INTERPRETING MD: MELIDA GIRALDO
--- NOTE | ~2017-01-25 | FU ---
[facility] Nutrition Therapy DATE: 01/31/17 Patient: JOSE MCNAIR Physician: ANDREA Address: [address] Room/Bed: [address] [address], Zip: [place] [address] Admit Date: 01/25/17 Date of : 31 Height: 5 1 Weight: 104 47.6 NUTRITION MONITORING/FOLLOW-UP: Reason: PT SEEN FOR FOLLOW-UP DX: GI BLEED/SYMPTOMATIC ANEMIA Anthropometrics: 5'1", WT: 104# (42 KG), BMI: -ADMIT WEIGHT: 113# (51.3 KG) Labs: NA+:132, CA+:7.1, ALB: 2.6, TGs: 202 Meds: MEGACE ORAL, ZOFRAN, NACL, PROTONIX, PREDNISONE, FOLIC ACID I&O's: 980/907, 4 BMs NOTED Skin: STAGE 2 PRESSURE ULCER (R) BUTTOCK Estimated Nutrition Needs: INCREASED NEEDS 2' DECREASED PO INTAKE AND APPETITE, WEIGHT LOSS NOTED IN RD ASSESSMENT ON 01/26 AND SKIN BREAKDOWN Assessment: CHART REVIEWED AND EVENTS NOTED. PT SEEN FOR FOLLOW-UP. PT REPORTS APPETITE IMPROVING, NOTING NO C/O N/V/D. PT HAD BREAKFAST TRAY AT BEDSIDE-NOTED PT ATE 100%. PT DENIES ANY CHEWING OR SWALLOWING DIFFICULTIES. PT ADDS "I'M FEELING A LOT BETTER". THIS RD ENCOURAGED ADEQUATE KCAL AND PROTEIN INTAKE, PT AGREED. PT REPORTS DRINKING 1-2 ENSURE SHAKES DAILY AND REQUESTING ENSURE PUDDING, RD WILL ORDER. PT REPORTED NO DIET QUESTIONS AT THIS VISIT. RD TO CONTINUE TO FOLLOW. Dx: UNINTENTIONAL WEIGHT LOSS R/T DECREASED PO INTAKE/APPETITE, PMH AEB PT REPORT ABOVE, ~22# OR ~30# WEIGHT LOSS NTOED PAST 6 MONTHS.-ACTIVE Intervention: 1. HEALTHY HEART + DENTAL SOFT DIET 2. ENSURE SHAKES BID 3. MAGIC CUP W/LUNCH DAILY Monitoring, Evaluation and Goals: 1. ORAL INTAKE; CONSUME/TOLERATE >50% OF MEALS AND SUPPLEMENTS-IN PROGRESS 2. WEIGHTS; PREVENT FURTHER WEIGHT LOSS; PROMOTE HEALTHY WEIGHT MAINTENANCE-IN PROGRESS 3. LABS; WNL-IN PROGRESS 4. SKIN; PROMOTE SKIN HEALING-IN PROGRESS (WOUND CARE FOLLOWING) MONITOR: -PO INTAKE/APPETITE -WEIGHTS -SUPPLEMENT INTAKE [facility] Nutrition Therapy DATE: 01/31/17 Patient: JOSE MCNAIR Physician: ANDREA Address: [address] Room/Bed: [address] [address], Zip: [place] [address] Admit Date: 01/25/17 Date of : 31 Height: 5 1 Weight: 104 47.6 -WOUND CARE Recommendations: 1. PLEASE ORDER CHOCOLATE MAGIC CUP W/LUNCH DAILY FOR SUPPLEMENTAL NUTRITION 2. ADD MVI W/MINERAL + 100-200 MG VITAMIN C DAILY TO PT'S CURRENT MEDICATION REGIMEN TO PROMOTE SKIN HEALING 3. APPRECIATE FAMILY AND STAFF TO CONTINUE TO ENCOURAGE ADEQUATE PO AND SUPPLEMENT INTAKE 4. CONTINUE TO WEIGH PT q 3 DAYS FOR MONITORING PURPOSES RD WILL F/U PER PROTOCOL PT IS MILD/MODERATELY COMPROMISED Respectfully, FRANCIA WOODS MS, RD, LD Food and Nutritional Services [facility] cc: client file
--- NOTE | ~2017-01-25 | FU ---
[facility] Nutrition Therapy DATE: 02/07/17 Patient: JOSE MCNAIR Physician: ANDREA Address: [address] Room/Bed: [address], Zip: [place] [address] Admit Date: 01/25/17 Date of : 31 Height: 5 1 Weight: 119 54 NUTRITION MONITORING/FOLLOW-UP: Reason: Nutrition follow-up Admitting dx: 86 y/o female admitted with GIB and symptomatic anemia Anthropometrics: Ht: 61", admission wt: 113 lbs, current wt: 119 lbs, BMI: 21.3 (normal; based on admission wt) Labs: Na 132, BUN 24, GFR 58.3, lytes/glucose WNL Meds: Megace, Zofran prn, PPI, folic acid, furosemide, IV Abx, miralax, senna, solu-medrol, Na bicarb, low SSI GI: Last BM 01/31, + constipation and intermittent N/V Skin: blanchable redness coccyx (stage II pressure ulcer to buttocks previously documented), trace edema BLE Assessment: Chart reviewed, events noted. RD consulted 02/04 while the patient was intubated to provide EN recs, however the patient was extubated the following day, 02/05. She is on high flow nasal cannula. Her diet was advanced to mechanical soft with thin liquids on 02/05 and she has only been taking bites of food. RN confirms poor appetite and intermitten N/V likely due to constipation and no BM in 7 days. Bowel regimen ordered today, pt may get an enema. She is on IV zofran prn. RD observed lunch tray- bites of apple sauce consumed. Pt had vanilla Ensure on her tray which I opened for her and she is trying to drink, states she likes vanilla or strawberry- will add to diet order. See nutrition dx, goals and recs as stated below. Will continue to follow. Dx: Inadequate oral intake r/t clinical condition, vent dependence AEB NPO status - RESOLVED (pt extubated 02/05) New nutrition dx: Inadequate oral intake r/t poor appetite, constipation, lethargy AEB PO intake < 25% of meals, need for ONS. Intervention: Ensure TID Monitoring, Evaluation and Goals: 1. EN to provide > 80% goal volume x 24 hrs - NO LONGER RELEVANT (pt on PO diet) 2. Maintain weight status/prevent unintentional loss - MET/IN PROGRESS (6 lb gain) 3. Labs WNL - MET (exception: Na is low) 4. Promote wound healing - MET/IN PROGRESS (stage II not documented, blanchable redness [facility] Nutrition Therapy DATE: 02/07/17 Patient: JOSE MCNAIR Physician: ANDREA Address: [address] Room/Bed: [address], Zip: [place] [address] Admit Date: 01/25/17 Date of : 31 Height: 5 1 Weight: 119 54 noted) New nutrition goal (in addition to above): PO intake > 50% of meals/supps Recommendations: 1. Continue oral diet per STORM CHASER: mechanical soft w/ thin liquids. Patient needs encouragement at meals and assistance ordering and opening items on her tray. 2. RD ordering vanilla or strawberry Ensure Enlive TID to increase oral kcal/protein intake. Please assist with opening and adding a straw to the bottle. 3. Bowel regimen per MD to help promote regular BM's. She may require an enema. 4. Continue IV zofran prn. Continue oral megace to help stimulate appetite. Status: Moderate nutrition risk Respectfully, Lavern Doan, AGAPITO, LD Food and Nutritional Services [facility] cc: client file
--- NOTE | ~2017-01-25 | FU ---
[facility] Nutrition Therapy DATE: 02/11/17 Patient: JOSE MCNAIR Physician: ANDREA Address: [address] Room/Bed: [address], Zip: [place] [id number] Admit Date: 01/25/17 Date of : 31 Height: 5 1 Weight: 127 58 NUTRITION MONITORING/FOLLOW-UP: Reason: Consult re: EN recs Assessment: Patient known to this RD, chart reviewed. She is on a mechanical soft diet with Ensure ordered TID, however her PO intake continues to be very poor. She is on Bipap. MD ordered EN to restart. Patient previously on Jevity 1.5 goal 40 ml/hr. RD spoke with Jennifer (RN) who I provided verbal recommendations to. Said she would relay the recommendations to the patient's nurse who is currently off the floor. Will follow-up as scheduled 02/13 to assess EN tolerance and oral intake. Recommendations: 1. See assessment above. PO diet as tolerated per HOTEL HOUSEKEEPER. Recommend Jevity 1.5 @ goal 40 ml/hr to provide 100% of estimated nutritional needs until PO intake and respiratory status improve. RD will continue to follow. Status: Moderate nutrition risk Respectfully, Lavern Doan, AGAPITO, LD Food and Nutritional Services [facility] cc: client file
--- NOTE | ~2017-01-25 | CR63 ---
[facility] A Service of [facility] RADIOLOGY TEXT RESULTS PATIENT: JOSE MCNAIR LOCATION: [facility] 327-01 : 31 UNIT #: [id number] AGE: [address]: Ganesh Chavez MD SEX: F ORDER DR: [id number] [facility] [address] [facility]. [place], [place] [address] [id number] I MR#: [id number] Acc #: [id number] NAME: JOSE MCNAIR : 1930 SEX: F STUDY DATE/TIME: 02/02/2017 9:29 UNIT: [facility] ROOM: [facility] STUDY DESCRIPTION: CR Chest 2 View Attending Physician: Ganesh Chavez M.D. Ordering Physician: Ganesh Chavez M.D. Primary Care Physician: Nona Philippe M.D. MEDICAL IMAGING REPORT This report is preliminary unless electronic signature is present EXAM PA and lateral chest. INDICATIONS Shortness of breath for 2 weeks. HISTORY Congestive heart failure. COMPARISON 01/26/2017. FINDINGS There is no acute infiltrate. There is a small left pleural effusion. There may be a trace right pleural effusion. Stable heart size. Tortuous aorta. Atherosclerotic calcification of the aorta. Degenerative change of the shoulders and spine. IMPRESSION Small left pleural effusion and possible trace right pleural effusion. No acute infiltrate. Dictated by... Reji Patterson M.D. THIS IS AN ELECTRONICALLY VERIFIED REPORT Reji Patterson M.D. at 02/04/2017 7:34 AM ARS/gz TD: 02/03/2017 11:28 JOB #: [id number] MEDICAL IMAGING REPORT [facility] A Service of [facility] RADIOLOGY TEXT RESULTS PATIENT: JOSE MCNAIR LOCATION: [facility] 327-01 : 31 UNIT #: [id number] AGE: [address]: Ganesh Chavez MD SEX: F ORDER DR: Page 1 of 1 COPY
--- NOTE | ~2017-01-25 | CR72 ---
[facility] A Service of [facility] & [facility] RADIOLOGY TEXT RESULTS PATIENT: JOSE MCNAIR LOCATION: [facility] 564-01 : 31 UNIT #: [id number] AGE: [address]: Ganesh Chavez MD SEX: F ORDER DR: [id number] [facility] [address] [facility]. [place], [place] [address] [id number] MR#: [id number] Acc #: [id number] NAME: JOSE MCNAIR : 1930 SEX: F STUDY DATE/TIME: 01/26/2017 11:22 UNIT: [facility] ROOM: [facility] STUDY DESCRIPTION: CR Chest Single View Portable Attending Physician: Ganesh Chavez M.D. Ordering Physician: Sandhya Christianson A.P.R.N. Primary Care Physician: Nona Philippe M.D. MEDICAL IMAGING REPORT This report is preliminary unless electronic signature is present EXAM Portable AP view of the chest COMPARISON January 25, 2017, November 18, 2016 and May 23, 2016. INDICATION 86-year-old female with dyspnea for 1 week. History of CHF. FINDINGS AND IMPRESSION No evidence of pneumothorax. No pleural effusion. There is stable tortuosity of the descending thoracic aorta. Heart size is within normal limits. Skin fold artifact is seen over the right chest. No evidence of acute airspace disease. Changes of vertebroplasty seen at multiple levels in the upper lumbar spine. This is not well evaluated on the current exam. Dictated by... Brock Willson M.D. THIS IS AN ELECTRONICALLY VERIFIED REPORT Brock Willson M.D. at 01/30/2017 11:44 AM Javi TD: 01/26/2017 16:54 JOB #: [id number] MEDICAL IMAGING REPORT Page 1 of 1 COPY
--- NOTE | ~2017-01-25 | CO ---
Unit #: [id number] #: [id number] Patient: JOSE MCNAIR [id number] [address] [place], [place] [address] [id number] MR#: [id number] NAME: JOSE MCNAIR ROOM: 564 Age: 86 Sex: F Admission Date: 01/25/2017 : 1930 Attending Physician: Ganesh Chavez M.D. Primary Care Physician: Nona Philippe M.D. CONSULTATION REPORT Dr. Judd Crenshaw is the rounding physician this weekend. REASON FOR CONSULTATION Murmur. HISTORY OF PRESENT ILLNESS This is a pleasant 86-year-old frail elderly female with a past medical history of hypertension, hyperlipidemia, rheumatoid arthritis on methotrexate, GERD, degenerative disk disease/chronic back pain. According to the patient approximately 2 weeks ago, she noticed increasing weakness and fatigue. She thought it was related to her rheumatoid arthritis, however, the weakness and fatigue as well as her appetite progressively worsened. She reports she has lost about 30 pounds within the last 6 months. She called her physician Dr. Philippe and was told to come to the hospital and was directly admitted. The patient also reports increasing shortness of breath. She denies any palpitations or chest pain. We were asked to see the patient secondary to systolic murmur. On arrival, it was noted that the patient's hemoglobin was 7.4 and she was ordered 2 units of packed red blood cells for transfusion. She denies any overt bleeding. Denies any melena or hematochezia or hemoptysis. Point of care troponin was less than 0.05. This is notable the patient did have Lexiscan Cardiolite stress test in 01/2016, which showed no stress-induced ischemia. She also had a 2D echocardiogram as well in 01/2016 showed LVEF of 65%, [id number]-ct-rnbgajqv LVH, mild aortic stenosis, moderate aortic regurgitation, moderate tricuspid regurgitation, RVSP of 58 mmHg. PAST MEDICAL HISTORY 1. Hypertension. 2. Hyperlipidemia. 3. Rheumatoid arthritis, on methotrexate and prednisone. 4. GERD. 5. Degenerative disk disease. 6. Chronic back pain. 7. 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 8. 2D echocardiogram in 01/2016 shows LVEF of 65, kvdz-xo-uzpjfqdm LVH, concentric mild , moderate AR, moderate TR, RVSP of 58 mmHg. 9. Lexiscan Cardiolite in 01/2016 showed no stress-induced ischemia. PAST SURGICAL HISTORY 1. Cholecystectomy. 2. Appendectomy. 3. Ovarian cyst removal. 4. Partial hysterectomy. 5. Right lower extremity, squamous cell removal. Unit #: [id number] #: [id number] Patient: JOSE MCNAIR 6. Left breast cyst removal. 7. Epidural injections in the past with Dr. Ramirez. ALLERGIES Codeine. HOME MEDICATIONS Celebrex 200 mg p.o. b.i.d., Tessalon Perles 100 to 200 at bedtime p.r.n. cough, cefdinir 300 mg p.o. b.i.d., iron 325 mg p.o. daily, Humibid LA 600 mg p.o. b.i.d., methotrexate 15 mg p.o. weekly, Collison 7.5/325 one tab p.o. t.i.d. p.r.n. pain, morphine sulfate 15 mg p.o. q.12 hours, prednisone 10 to 50 mg p.o. daily p.r.n. inflammation, Arava 20 mg p.o. daily, pantoprazole 40 mg p.o. daily, Zestril 10 mg p.o. daily, Zocor 5 mg p.o. q.h.s., folic acid 1 mg p.o. daily. FAMILY HISTORY Father had an CO in his 50s. Mother had a cerebral hemorrhage in her 70s. Brother with history of coronary artery disease. SOCIAL HISTORY The patient lives with her daughter. She uses a walker on occasion. She is a nonsmoker. Denies illicit drugs or alcohol. REVIEW OF SYSTEMS Positive for fatigue and weight loss, intermittent shortness of breath. Otherwise, negative except what was stated above in the HPI. PHYSICAL EXAMINATION GENERAL: This is a very pleasant, pale, fragile, elderly female, who is in no acute distress. VITAL SIGNS: Temperature 97.8, respiratory rate 18 to 20, heart rate 70 to 80, blood pressure 134/64. BMI is 20. HEENT: Head is atraumatic and normocephalic. Pupils are equal and round. NECK: Trachea is midline. No lymphadenopathy or thyromegaly. No JVD. Carotid upstrokes are normal. CARDIOVASCULAR: S1, S2. Systolic murmur is noted. LUNGS: Clear to auscultation. Diminished in the bases. No rales, crackles or wheezes are noted. ABDOMEN: Soft, nontender, nondistended. Bowel sounds are present. EXTREMITIES: Pulses are weak, but palpable. No clubbing, cyanosis, or edema. NEUROLOGIC: She is awake, alert, and oriented. She moves all extremities equally. She follows commands with ease. DIAGNOSTIC STUDIES LABORATORY RESULTS: Sodium 137, potassium 4.0, chloride 107, CO2 of 25, BUN 10, creatinine 0.5, glucose is 73. Hemoglobin is now 9.8, initially was 7.4; hematocrit 29.6; WBCs 3.7; and platelet count 103. BNP was 97. Troponins were negative. IMAGING STUDIES: X-ray shows no evidence of pneumothorax. No effusion. Stable tortuosity of descending thoracic aorta. Heart size is within normal limits. Changes of vertebroplasty are seen at multiple levels. CARDIOVASCULAR STUDIES: EKG shows normal sinus rhythm, with PVCs, rate of 79 beats per minute, QTc interval of 419 msec, no acute ischemic changes noted. Unit #: [id number] #: [id number] Patient: JOSE MCNAIR IMPRESSION 1. Symptomatic anemia. Initial presenting hemoglobin of. 7.4, hematocrit of 23.7, status post 2 units packed red blood cells, questionable etiology. 2. Dyspnea on exertion, rule out acute coronary syndrome. Did have a recent stress test in 2016 that showed no stress-induced ischemia. 3. Hypertension. 4. Hyperlipidemia. 5. Family history of coronary artery disease, premature. 6. Systolic murmur. 7. Weight loss. PLAN We will repeat 2D echocardiogram to reassess heart valve for any worsening. There is no overt clinical evidence of congestive heart failure at present. The patient has had a recent Lexiscan Cardiolite in 01/2016, which was negative for stress-induced ischemia. She may very well have underlying coronary artery disease, but the patient is 86 years of age and at this time refuses any heart cardiac catheterization. We will continue to trend cardiac enzymes and follow her EKG. The patient has had significant weight loss along with pancytopenia. Heme-Onc has been consulted to see her as well as there was some question for mild dysplastic syndrome. Further recommendations pending Dr. Crenshaw's assessment. Dictated by... Sandhya Christianson A.P.R.N. for Janette Conklin/kj TD: 01/29/2017 05:31 JOB #: [id number] CONSULTATION REPORT Page 1 of 1 X Sandhya Christianson APRN X CONSULTATION REPORT
--- NOTE | ~2017-01-25 | CR72 ---
[facility] A Service of [facility] & [facility] RADIOLOGY TEXT RESULTS PATIENT: JOSE MCNAIR LOCATION: [facility] 564-01 : [birth year] UNIT #: [id number] AGE: [address]: Ganesh Chavez MD SEX: F ORDER DR: [id number] [facility] [address] [facility] [place], [place] [address] [id number] I MR#: [id number] Acc #: [id number] NAME: JOSE MCNAIR : 1930 SEX: F STUDY DATE/TIME: 01/25/2017 16:39 UNIT: [facility] ROOM: [facility] STUDY DESCRIPTION: CR Chest Single View Portable Attending Physician: Ganesh Chavez M.D. Ordering Physician: Meng Amin M.D. Primary Care Physician: Nona Philippe M.D. MEDICAL IMAGING REPORT This report is preliminary unless electronic signature is present EXAM Portable chest x-ray, 01/25/2017. HISTORY Short of air. Began 1 week ago, worse since yesterday. Prior history of skin cancer. FINDINGS AP radiograph of the chest is presented. Stable mild cardiac enlargement. Lungs appear somewhat hyperinflated. Correlate with any known history of underlying chronic airway disease/COPD. There is no evidence of acute pulmonary disease, pleural effusion, or pneumothorax. No suspicious nodule. Stable mild cardiac enlargement. Evidence of prior orthopedic intervention right shoulder. Multilevel degenerative changes in the spine. Dictated by... Dequan Hooper M.D. THIS IS AN ELECTRONICALLY VERIFIED REPORT Dequan Hooper M.D. at 01/26/2017 9:43 PM SARAHI/ramana TD: 01/26/2017 07:31 JOB #: [id number] MEDICAL IMAGING REPORT Page 1 of 1 COPY
--- NOTE | ~2017-01-25 | CO ---
Unit #: [id number] #: [id number] Patient: JOSE SOLARES [id number] [address] [place], [place] [address] [id number] I MR#: [id number] NAME: JOSE SOLARES ROOM: 564 Age: 86 Sex: F Admission Date: 01/25/2017 : 1930 Attending Physician: Ganesh Chavez M.D. Primary Care Physician: Nona Philippe M.D. CONSULTATION REPORT REASON FOR OCNSULTATION HSV esophagitis. HISTORY OF PRESENT ILLNESS Miss Solares is a pleasant 86-year-old female with a past medical history significant for a squamous cell cancer of her lower extremity, rheumatoid arthritis, hyperlipidemia and hypertension, who was admitted about seven days ago for complains of progressive weakness. During this stay she has received several blood transfusions. At this time she also complains of difficulty swallowing as well as a little bit of some cough and some abdominal discomfort with nausea. She had a CT of her chest while here which showed patchy peribronchial ground-glass opacities in the right lower lobe. More inferiorly in the right lower lobe is a more solid 1.1 cm irregular parenchymal density. She is currently being followed by a pulmonary group. CT of her abdomen and pelvis showing a question of a rectal mass which is just inside the anal verge and should be palpable on rectal exam if real, with no evidence of bowel obstruction or adenopathy and no acute or inflammatory changes are seen in the abdomen and pelvis otherwise. She had an EGD performed by GI for which we are now being consulted for esophageal biopsy concerning for HSV. Pathology report is currently pending and I spoke with pathologist regarding biopsy result. Patient is currently not on antibiotics. She remains afebrile, is sitting up on the side of the bed and eating breakfast. She does complain of difficulty swallowing, especially her pills, as well as some stomach discomfort from her ulcers. PAST MEDICAL HISTORY Past medical history is significant for hypertension, hyperlipidemia, rheumatoid arthritis on methotrexate and prednisone, GERD, degenerative disc disease, chronic back pain, history of squamous cell carcinoma of the lower extremity. Two-D echo shows LVEF of 65%. PAST SURGICAL HISTORY Past surgical history includes cholecystectomy, appendectomy, ovarian cyst removal, partial hysterectomy, right lower extremity squamous cell removal, left breast removal, epidural injections in the past. ALLERGIES Codeine. Patient denies any antibiotic allergies. CURRENT MEDICATIONS Reviewed. The patient is currently not on any antibiotics. Unit #: [id number] #: [id number] Patient: JOSE SOLARES FAMILY HISTORY Family history is noncontributory. SOCIAL HISTORY The patient lives with her daughter. She uses a walker. She is a nonsmoker and denies any illicit or alcohol use. REVIEW OF SYSTEMS All negative except for those stated in the HPI. PHYSICAL EXAMINATION GENERAL: Very pleasant, pale, fragile elderly woman who is sitting up on the side of the bed and eating breakfast. Friend is at bedside. VITAL SIGNS: Currently temperature is 98.7, pulse rate is 69, respiratory rate is 16, blood pressure is 102/60. CARDIOVASCULAR: Regular rate. PULMONARY: Clear to auscultation, nonlabored, diminished in the bases. GASTROINTESTINAL: Soft, nontender, positive bowel sounds. EXTREMITIES: Clean, dry and intact. HEENT: Tongue with no noted thrush. NECK: Neck is supple. NEUROLOGIC: Orientation is alert and oriented. DIAGNOSTIC STUDIES IMAGING: CT chest with peribronchial ground-glass opacities in the right lower lobe. More inferiorly in the right lower lobe is a more solid 1.1 cm irregular parenchymal density and small, ground-glass opacities medially in the right upper lobe and some minimal tree-in-bud nodularity in the left lower lobe. CT abdomen and pelvis with question of rectal mass. No evidence of bowel obstruction or adenopathy. No acute inflammatory changes in the abdomen or pelvis. LABORATORY: BUN is 11, creatinine 0.6, sodium is 130, potassium is 3.6, white count is 2.9, hemoglobin is 9.6, platelets are 50. No recent cultures. PATHOLOGY: Pending pathology of esophageal biopsy. ASSESSMENT AND PLAN An 86-year-old immunocompromised patient due to rheumatoid arthritis and current chronic steroid use with complaints of difficulty swallowing, status post EGD which is showing severe esophagitis. 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 At this point due to the patient's immunocompromised state will start the patient on acyclovir. Will monitor patient closely. Will follow up on further cultures and await further biopsy report. Discussed plan with Dr. Vázquez who will see patient later today with any further recommendations. At this point patient is clinically stable and sitting up and eating breakfast, in no apparent distress. Will continue to follow along with you and further recommendations to follow. Thank you for the consultation. Unit #: [id number] #: [id number] Patient: JOSE SOLARES Dictated by... Anitra Vital APRN for Janette Bernal/greg TD: 02/01/2017 18:42 JOB #: [id number] CONSULTATION REPORT Page 1 of 1 X X CONSULTATION REPORT
--- NOTE | ~2017-01-25 | OR ---
Unit #: [id number] #: [id number] Patient: JOSE MCNAIR [id number] [address] [place], [place] [address] [id number] MR#: [id number] NAME: JOSE MCNAIR ROOM: 564 Date of Procedure: 01/31/2017 Admission Date: 01/25/2017 Surgeon: Dick Perez M.D. : 1930 Attending Physician: Ganesh Chavez M.D. Primary Care Physician: Nona Philippe M.D. OPERATIVE REPORT PROCEDURE PERFORMED Esophagogastroduodenoscopy with biopsies, flexible sigmoidoscopy. INDICATIONS An 86-year-old female with significant abdominal pain, acute on chronic anemia, also with possible rectal mass on CT scan, undergoing evaluation with upper endoscopy and sigmoidoscopy. MEDICATIONS Monitored anesthesia. POSTOPERATIVE FINDINGS 1. Very severe esophagitis with continuous ulceration throughout the esophagus; upper, mid, and distal esophagus. Biopsies taken looking for infectious etiology. 2. Mild gastritis along with small ulcer in gastric antrum and previous site with scarring. Biopsies taken looking for Helicobacter pylori. 3. Normal duodenum and distal duodenum. 4. Sigmoidoscopy was normal. 5. No rectal mass was seen. 6. Internal hemorrhoids seen. PLAN Continue with aggressive PPI therapy. Mechanical soft diet. Follow up on the biopsy results. DESCRIPTION OF PROCEDURE The patient was explained of the procedure, risks, and benefits along with risks and benefits of anesthesia. She was brought to the endoscopy room. Propofol anesthesia was given. Bite block was placed. The scope was passed down the mouth into the esophagus, stomach, duodenum, and distal duodenum. Findings as described. Biopsies taken in the stomach and esophagus. Gently, I pulled the scope out of the patient's mouth. At this time, she was turned around and repositioned for sigmoidoscopy. Rectal exam was done, no mass felt. Colonoscope was lubricated, passed up the rectum, advanced up to 40 to 50 cm. At this point, we started to pull the scope out. No polyps, masses, or colitis were seen. I retroflexed in the rectum, internal hemorrhoids noted. No rectal mass was seen. Gently, the scope was pulled out. She tolerated it well. Unit #: [id number] #: [id number] Patient: JOSE MCNAIR Dictated by... Janette Wong/kj TD: 01/31/2017 09:37 JOB #: [id number] OPERATIVE REPORT Page 1 of 1 X Dick Perez MD X PROCEDURE OPERATIVE NOTE
--- NOTE | ~2017-01-25 | CT71 ---
[facility] A Service of [facility] & [facility] RADIOLOGY TEXT RESULTS PATIENT: JOSE MCNAIR LOCATION: [address]-12 : [birth year] UNIT #: [id number] AGE: [address]: Ganesh Chavez MD SEX: F ORDER DR: [id number] [facility] [address] [facility]. [place], [place] [address] [id number] I MR#: [id number] Acc #: [id number] NAME: JOSE MCNAIR : 1930 SEX: F STUDY DATE/TIME: 02/08/2017 21:39 UNIT: [facility] ROOM: [facility] STUDY DESCRIPTION: CT Head Wo Contrast Attending Physician: Ganesh Chavez M.D. Ordering Physician: Ganesh Chavez M.D. Primary Care Physician: Nona Philippe M.D. MEDICAL IMAGING REPORT This report is preliminary unless electronic signature is present EXAM Head CT no contrast 02/08/2017 INDICATION Lethargic, less responsive today. TECHNIQUE Noncontrast CT brain was performed. There are no comparison studies. This CT examination was performed with one or more of the following radiation dose reduction techniques: automatic exposure control, adjustment of mA and/or kV according to patient size, and iterative reconstruction. FINDINGS There is motion degradation. These were apparently the best images possible. There is generalized cerebral atrophy. Sulci and ventricles otherwise unremarkable. No midline shift. No evidence of acute intracranial hemorrhage. There is no mass, mass effect or edema to suggest acute infarct and no extraaxial fluid collections are present. Chronic ischemic changes are present in the periventricular white matter. Globes intact. Bones intact. There is opacification of the mastoid air cells bilaterally. Correlate with signs or symptoms of mastoiditis. IMPRESSION 1. Atrophy and chronic ischemic changes. No clearly acute intracranial process. 2. Opacification of the mastoid air cells bilaterally. This may reflect mastoiditis. STAT * RESULT STS. [facility] A Service of [facility] & [facility] RADIOLOGY TEXT RESULTS PATIENT: JOSE MCNAIR LOCATION: [facility] : 31 UNIT #: [id number] AGE: [address]: Ganesh Chavez MD SEX: F ORDER DR: Dictated by... Boogie Stevens M.D. THIS IS AN ELECTRONICALLY VERIFIED REPORT Boogie Stevens M.D. at 02/09/2017 9:29 PM LORETA/nayla TD: 02/09/2017 10:06 JOB #: [id number] MEDICAL IMAGING REPORT Page 1 of 1 COPY
--- NOTE | ~2017-01-25 | CR71 ---
[facility] A Service of [facility] RADIOLOGY TEXT RESULTS PATIENT: JOSE MCNAIR LOCATION: [address]07-12 : [birth year] UNIT #: [id number] AGE: [address]: Ganesh Chavez MD SEX: F ORDER DR: [id number] [facility] [address] [place], [place] [address] [id number] I MR#: [id number] Acc #: [id number] NAME: JOSE MCNAIR : 1930 SEX: F STUDY DATE/TIME: 02/04/2017 7:56 UNIT: [facility] ROOM: [facility] STUDY DESCRIPTION: CR Chest Single View Attending Physician: Ganesh Chavez M.D. Ordering Physician: Ganesh Chavez M.D. Primary Care Physician: Nona Philippe M.D. MEDICAL IMAGING REPORT This report is preliminary unless electronic signature is present EXAM Portable chest one-view, date of study 02/04/2017. COMPARISON 02/02/2017. CLINICAL HISTORY Respiratory distress, short of air. FINDINGS Extensive bilateral mostly central interstitial and alveolar infiltrates, mild cardiomegaly, findings most suggestive of acute pulmonary edema. Infectious or inflammatory disease and/or pulmonary hemorrhage are, of course, possible as well. No convincing evidence of pneumothorax or significant effusion. There may be a tiny left effusion. Dictated by... Tristan Colunga M.D. THIS IS AN ELECTRONICALLY VERIFIED REPORT Tristan Colunga M.D. at 02/08/2017 4:09 PM TEV/gz TD: 02/04/2017 13:34 JOB #: [id number] MEDICAL IMAGING REPORT Page 1 of 1 COPY
--- NOTE | ~2017-01-25 | CO ---
Unit #: [id number] #: [id number] Patient: JOSE MCNAIR [id number] [facility]. [place], [place] [address] [id number] I MR#: [id number] NAME: JOSE MCNAIR ROOM: 564 Age: 86 Sex: F Admission Date: 01/25/2017 : 1930 Attending Physician: Ganesh Chavez M.D. Primary Care Physician: Nona Philippe M.D. Consultation Date: 01/26/2017 CONSULTATION REPORT REASON FOR EVALUATION Anemia, thrombocytopenia. Please evaluate. HISTORY OF PRESENT ILLNESS The patient is an 86-year-old lady who started feeling tired, weak, mild degree of shortness of breath in the last two to three weeks, presented to the hospital and she is approaching pancytopenia. We are requested to evaluate. Today on questioning she states that she is only tired. No fever, chills, and no night sweats. No hemoptysis, hematemesis, melena, hematuria, hematochezia. PAST HISTORY Remarkable for rheumatoid arthritis currently burned out, hypertension, hyperlipidemia, with no history of blood transfusion or anemia. She does have a history of squamous cell carcinoma lower extremity, resected, not recurred and ovarian and breast cysts, which were removed. Chronic medications including Norvasc, methotrexate, folic acid, Prinivil, biotin, aspirin, Arava, prednisone, hydrocodone and morphine periodically and calcium pills. ALLERGIES Codeine. FAMILY HISTORY Positive for arthritis in the family. Positive for AR in the father at a younger age and cerebral bleed in the mother but no other major illnesses in the family. SOCIAL HISTORY The patent still lives at home with daughter. Nonsmoker. No alcohol usage. She is . REVIEW OF SYSTEMS Tiredness mainly, shortness of breath, mild aches and pains all over the body and otherwise six or eight systems were within normal limits. PHYSICAL EXAMINATION GENERAL: Very pale, evidence of degenerative arthritis burnt out in the hands and feet. No palpable nodes. LUNGS: Crackles. No rales. CARDIOVASCULAR: Distant S1 and S2. ABDOMEN: Diffuse tenderness, no rebound. No rigidity. PROFESSIONAL SKATER: Grossly intact. Detailed PROFESSIONAL SKATER exam was not done. Pelvic and breast exam was not performed. Unit #: [id number] #: [id number] Patient: JOSE MCNAIR DIAGNOSTIC STUDIES LABORATORY STUDIES: Hemoglobin 9.8 but upon presentation it was 7.7. Hematocrit currently 29.6, it was 24.8, white count 3200 at presentation, today 3700 and platelets which were 167,000 is down to 103,000. Chemistries - glucose 73, BUN 10, creatinine 0.5, sodium 137, potassium 4, chloride 107, CO2 25, and albumin of 2.7. IMPRESSION This 86-year-old lady who is approaching pancytopenia has been on methotrexate for a very long time, which would explain her mild neutropenia, thrombocytopenia but anemia is a new findings so will proceed with a baseline studies, iron, TIBC, ferritin, B12, folate, LDH, and retic count and most probably will require bone marrow aspirate biopsy but will do that on Saturday or as an outpatient. Dictated by... Janette Harry/magdy TD: 01/26/2017 12:24 JOB #: [id number] CONSULTATION REPORT Page 1 of 1 X Bakari Blackwood MD X CONSULTATION REPORT
--- NOTE | ~2017-01-25 | CT2 ---
[facility] A Service of [facility] RADIOLOGY TEXT RESULTS PATIENT: JOSE MCNAIR LOCATION: [facility] 564-01 : 31 UNIT #: [id number] AGE: [address]: Ganesh Chavez MD SEX: F ORDER DR: [id number] [facility] [address] [place], [place] [address] [id number] I MR#: [id number] #: [id number] NAME: JOSE MCNAIR : 1930 SEX: F STUDY DATE/TIME: 01/29/2017 17:48 UNIT: [facility] ROOM: 4 STUDY DESCRIPTION: CT Abd and Pelv W Cont Attending Physician: Ganesh Chavez M.D. Ordering Physician: Ganesh Chavez M.D. Primary Care Physician: Nona Philippe M.D. MEDICAL IMAGING REPORT This report is preliminary unless electronic signature is present EXAM Abdomen and pelvis CT with contrast. HISTORY Decreased appetite, anemia, and weight loss over the past several months. TECHNIQUE Axial images were obtained with oral and intravenous contrast. 100 mL of Isovue was used. This CT exam was performed with one or more of the following radiation dose reduction techniques: automatic exposure control, adjustment of mA and/or kV according to patient size, and iterative reconstruction. COMPARISON Scan from 05/22/2014. FINDINGS At the right lung base laterally, there is a small ground-glass infiltrate measuring about 1.5 cm in diameter that was not present on the previous CT. I would recommend a followup CT scan in 4-5 months to recheck this for any evidence of progression over time. The lung bases are otherwise unremarkable. In the abdomen, the biliary tree is mildly prominent. This is unchanged from the previous examination. No suspicious liver lesions are seen. The spleen, pancreas, kidneys, and adrenals are unremarkable. There is no evidence of retroperitoneal adenopathy or ascites. No distended bowel loops are seen. There is soft tissue fullness noted at the anorectal verge. Correlate with rectal examination for evidence of a mass lesion. No evidence of mechanical bowel obstruction. No evidence of inflammatory bowel disease. Advanced lumbar degenerative disc disease is seen with a compression fracture noted at L1. This was also seen on the previous [facility]. [facility] A Service of [facility] RADIOLOGY TEXT RESULTS PATIENT: JOSE MCNAIR LOCATION: [facility]5 564-01 : 31 UNIT #: [id number] AGE: [address]: Ganesh Chavez MD SEX: F ORDER DR: examination with prior kyphoplasty having been performed at L1 and L2. IMPRESSION 1. Question of a rectal mass. This is just inside the anal verge and should be palpable on rectal examination if real. 2. No evidence of bowel obstruction or adenopathy. 3. No acute or inflammatory change is seen in the abdomen or pelvis otherwise. 4. 1.5-cm ground-glass density at the right lung base laterally that was not present on the previous scan in 2014. Recommend followup chest CT without contrast to recheck this in 4-5 months. Dictated by... Meng Herrera M.D. THIS IS AN ELECTRONICALLY VERIFIED REPORT Meng Herrera M.D. at 01/31/2017 7:07 AM ADELITA/ramana TD: 01/30/2017 09:13 JOB #: [id number] MEDICAL IMAGING REPORT Page 1 of 1 COPY
--- NOTE | ~2017-01-25 | CR7 ---
[facility] A Service of [facility] & [facility] RADIOLOGY TEXT RESULTS PATIENT: JOSE MCNAIR LOCATION: [address] : 31 UNIT #: [id number] AGE: [address]: Ganesh Chavez MD SEX: F ORDER DR: [id number] [facility] [address] [place], [place] [address] [id number] I MR#: [id number] Acc #: [id number] NAME: JOSE MCNAIR : 1930 SEX: F STUDY DATE/TIME: 02/09/2017 20:09 UNIT: [facility] ROOM: [facility] STUDY DESCRIPTION: CR Abdomen Single AP View Attending Physician: Ganesh Chavez M.D. Ordering Physician: Ganesh Chavez M.D. Primary Care Physician: Nona Philippe M.D. MEDICAL IMAGING REPORT This report is preliminary unless electronic signature is present EXAM Frontal abdomen, 02/09/2017. INDICATIONS Dobbhoff tube placement. GI bleed, abdominal pain, short of air, anemia, weakness. Advancement of the Dobbhoff tube compared to 1819 hours. TECHNIQUE Frontal abdomen compared with 1819 hours. FINDINGS Since the prior examination, the Dobbhoff tube has been advanced and is now at the level the distal esophagus/GE junction. It should be advanced another 10-15 cm for positioning at the level of the stomach with a followup radiograph to document appropriate positioning prior to usage. Left-sided central line unchanged. Interstitial and alveolar infiltrates in both lungs stable. The bones are osteoporotic. Vertebroplasty changes are present in the lumbar spine and there is atherosclerotic disease and tortuosity of the aorta. IMPRESSION 1. The tip of the enteric tube is now at the level of the distal esophagus/GE junction. It should be advanced another 10-15 cm to the level the stomach with a follow-up radiograph obtained prior to usage of the tube to document appropriate positioning. 2. Interstitial and alveolar infiltrates unchanged. STAT * RESULT Dictated by... Boogie Stevens M.D. [facility] A Service of [facility] & [facility] RADIOLOGY TEXT RESULTS PATIENT: JOSE MCNAIR LOCATION: [facility]07-12 : 31 UNIT #: [id number] AGE: [address]: Ganesh Chavez MD SEX: F ORDER DR: THIS IS AN ELECTRONICALLY VERIFIED REPORT Boogie Stevens M.D. at 02/09/2017 9:25 PM LORETA/lydia TD: 02/09/2017 20:32 JOB #: [id number] MEDICAL IMAGING REPORT Page 1 of 1 COPY
--- NOTE | ~2017-01-25 | CR72 ---
[facility] A Service of [facility] RADIOLOGY TEXT RESULTS PATIENT: JOSE MCNAIR LOCATION: [address] : 31 UNIT #: [id number] AGE: [address]: Ganesh Chavez MD SEX: F ORDER DR: [id number] [facility] [address] [place], [place] [address] [id number] I MR#: [id number] Acc #: [id number] NAME: JOSE MCNAIR : 1930 SEX: F STUDY DATE/TIME: 02/09/2017 5:14 UNIT: [facility] ROOM: [facility] STUDY DESCRIPTION: CR Chest Single View Portable Attending Physician: Ganesh Chavez M.D. Ordering Physician: Sun Matias M.D. Primary Care Physician: Nona Philippe M.D. MEDICAL IMAGING REPORT This report is preliminary unless electronic signature is present EXAM Portable chest INDICATION Respiratory failure today. PROCEDURE Frontal view chest. COMPARISON 02/06/2017. FINDINGS Heart size is unchanged. Increasing bilateral perihilar opacity. Probable small right pleural effusion. No visible pneumothorax. IMPRESSION 1. Increasing perihilar opacity suspected to represent edema. Bilateral pneumonia could have a similar appearance. 2. Probable small right effusion. STAT * RESULT Dictated by... Zheng Jerez M.D. THIS IS AN ELECTRONICALLY VERIFIED REPORT Zheng Jerez M.D. at 02/09/2017 10:03 PM SONJA/nayla TD: 02/09/2017 10:10 [facility] A Service of [facility] RADIOLOGY TEXT RESULTS PATIENT: JOSE MCNAIR LOCATION: [facility]07-12 : 31 UNIT #: [id number] AGE: [address]: Ganesh Chavez MD SEX: F ORDER DR: JOB #: [id number] MEDICAL IMAGING REPORT Page 1 of 1 COPY
--- NOTE | ~2017-01-25 | HP ---
Unit #: [id number] #: [id number] Patient: STEPHANIA SOLARES [id number] [address] [place], [place] [address] [id number] I MR#: [id number] NAME: STEPHANIA SOLARES ROOM: 564 Age: 86 Sex: F Admission Date: 01/25/2017 : 1930 Attending Physician: Ganesh Chavez M.D. Primary Care Physician: Nona Philippe M.D. HISTORY AND PHYSICAL ADMISSION DIAGNOSES 1. Symptomatic anemia. 2. History of chronic back pain. 3. Systolic murmur. 4. History of hypertension. 5. Dyslipidemia. 6. History of rheumatoid arthritis. 7. 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 HISTORY OF PRESENT ILLNESS Ms. Stephania Solares is an 86-year-old female, a patient of Dr. Philippe, who apparently was seen in the ER a couple days ago with complaints of some increasing weakness. At that time, her hemoglobin was 7.7, and a couple days prior, it looks like it was 7.9. At that time the patient was sent home. Unfortunately, she continued to decline, felt worse and went to Dr. Philippe's office, was seen by nurse practitioner and was found with increasing shortness of air, dyspnea with exertion, along with increasing weakness and fatigue. The patient was going to be directly admitted; however, she declined and ended up in the ER. In the ER her hemoglobin was 7.4, and she has been ordered by ER physician to be transfused and to be admitted. Otherwise, the patient denies any oksana bleeding. Denies any bloody stools or bloody emesis. She does have a history of rheumatoid arthritis. She is on methotrexate and prednisone. Also looks like she does have a history of peptic ulcer disease. Was seen by Dr. Perez in the past. Again, she denies any chest pain, dizziness or syncope. Denies any fever, chills, nausea, vomiting, diarrhea, or abdominal pain. REVIEW OF SYSTEMS A 12-point review of systems on this patient is basically negative except as above. PAST MEDICAL HISTORY Significant for history of heart murmur, hypertension, dyslipidemia, peptic ulcer disease, rheumatoid arthritis, lower extremity squamous cell carcinoma and chronic low back pain. PAST SURGICAL HISTORY Significant for cholecystectomy, appendectomy, ovarian cyst removal, partial hysterectomy, left breast cyst removal, right lower extremity cancer removal and epidural injections by Dr. Ramirez. MEDICATIONS I do not have home medications in front of me, but this will be clarified, and the patient will be continued appropriately. Unit #: [id number] #: [id number] Patient: STEPHANIA SOLARES Codeine. SOCIAL HISTORY No hi of tobacco, alcohol or illicit drugs. FAMILY HISTORY Family history is significant for heart disease and CVAs. PHYSICAL EXAMINATION GENERAL: She is an 86-year-old female who looks pale. Mild distress. VITAL SIGNS: BP 127/59, heart rate 88, respirations 18, temperature 97.8. HEENT: Head is atraumatic. Pupils are equal, round and reactive to light. Extraocular muscles are intact. Oropharynx is clear. NECK: Neck is supple. No masses. No JVD. No bruit. RESPIRATORY: Chest is diminished bilaterally at the bases. CARDIOVASCULAR EXAM: S1, S2 with ejection systolic murmur, best heard on the right sternal border. ABDOMEN: Abdomen is soft, nontender, nondistended. EXTREMITIES: Lower extremities have no cyanosis, clubbing or edema. NEUROLOGIC: Patient grossly intact without any focal deficits. LABS AND DIAGNOSTICS LABORATORY: Chemistry significant for blood glucose of 120, calcium 7.4, albumin 3, direct bili 0.4. Rest of the chemistry unremarkable. Coagulation panel - PTT 22.6 from a couple days ago, PT 10.6, INR 1. Set of cardiac enzymes negative. Hematology - H and H 7.4 and 23.7, white count 5.1, platelets 131. ASSESSMENT AND PLAN 1. Symptomatic anemia, getting transfusion in ER. History of peptic ulcer disease. Will start on IV b.i.d. PPI. Ask Dr. Perez for consult. Consider EGD. Stool for occult blood being checked. 2. Systolic murmur with questionable history of aortic stenosis. Will get records from previous two-D echo and ask Dr. Manuel to evaluate in the morning. 3. History of hypertension. 4. History of dyslipidemia. 5. History of chronic back pain. Resume home pain medicine. 6. History of rheumatoid arthritis. Continue home medications. 7. GI and DVT prophylaxis. Continue PPI. Dictated by Janette Mello/tasha TD: 01/26/2017 08:43 JOB #: [id number] Unit #: [id number] #: [id number] Patient: STEPHANIA SOLARES HISTORY AND PHYSICAL Page 1 of 1 X Ganesh Chavez MD X HISTORY AND PHYSICAL
--- NOTE | ~2017-01-25 | CO ---
Unit #: [id number] #: [id number] Patient: JOSE MCNAIR [id number] [address] [place], [place] [address] [id number] I MR#: [id number] NAME: JOSE MCNAIR ROOM: 564 Age: 86 Sex: F Admission Date: 01/25/2017 : 1930 Attending Physician: Ganesh Chavez M.D. Primary Care Physician: Nona Philippe M.D. Consultation Date: 01/30/2017 CONSULTATION REPORT REASON FOR CONSULT Abnormal CT chest. HISTORY OF PRESENT ILLNESS This is a very pleasant 86-year-old female with a past medical history significant for squamous cell cancer of her lower extremity, rheumatoid arthritis, hyperlipidemia, and hypertension, who presented to the emergency room with significant and progressive weakness and fatigue. She stated that she has lost about 35 pounds over the last period, but she did not specify over how long. Patient also complained of progressive shortness of breath but no chest pain. Her hemoglobin was noted to be low on presentation, but it was corrected with blood transfusion. Patient denied any history of smoking. She lives with her son and daughter. PAST MEDICAL HISTORY 1. Chronic anemia. 2. Hypertension. 3. Hyperlipidemia. 4. Rheumatoid arthritis. 5. Squamous cell cancer of the lower extremity. PAST SURGICAL HISTORY 1. Cholecystectomy. 2. Appendectomy. 3. Ovarian cyst removal. 4. Partial hysterectomy. ALLERGIES Codeine. FAMILY HISTORY Heart disease and CVA. SOCIAL HISTORY Patient denied any history of alcohol, drug abuse, or smoking. PHYSICAL EXAMINATION GENERAL: Patient is in no acute distress. HEENT: Atraumatic and normocephalic. PERRLA. EOMI. NECK: Supple. No JVD, no lymphadenopathy. CLEAR: Clear to auscultation bilaterally. HEART: S1 and S2. Systolic murmur. SKIN: No rashes. EXTREMITIES: No edema. Unit #: [id number] #: [id number] Patient: JOSE MCNAIR CENTRAL NERVOUS SYSTEM: Awake, alert, and oriented x3. No focal motor/sensory deficits. DIAGNOSTIC STUDIES LABORATORY: Creatinine 0.4 and sodium 131. Hemoglobin is 10.3 and white blood count 5.5. IMAGING: CT abdomen is noted and reviewed by me. ASSESSMENT 1. Pulmonary nodule. 2. Right thumb mass. 3. Acute on chronic anemia probably due to blood loss. 4. Thrombocytopenia. 5. Rheumatoid arthritis. 6. Hypertension. 7. 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 PLAN 1. Will obtain CT chest to evaluate the lung parenchyma and rule out other etiology and more pulmonary nodules. 2. Decision regarding CT-guided biopsy versus observation would be determined once the CT chest is available. 3. Bronchodilator and mucolytics. 4. Colonoscopy in the morning. 5. Encourage out of bed to chair and moving. 1. Dictated by... Janette Pittman TD: 01/30/2017 16:50 JOB #: [id number] CONSULTATION REPORT Page 1 of 1 X CAMMIE RONQUILLO MD X CONSULTATION REPORT
--- NOTE | ~2017-01-25 | CR6 ---
[facility] A Service of [facility] RADIOLOGY TEXT RESULTS PATIENT: JOSE MCNAIR LOCATION: [address] : 31 UNIT #: [id number] AGE: [address]: Ganesh Chavez MD SEX: F ORDER DR: [id number] [facility] [address] [place], [place] [address] [id number] I MR#: [id number] Acc #: [id number] NAME: JOSE MCNAIR : 1930 SEX: F STUDY DATE/TIME: 02/04/2017 10:27 UNIT: [facility] ROOM: [facility] STUDY DESCRIPTION: CR Abdomen Portable Sng View Attending Physician: Ganesh Chavez M.D. Ordering Physician: Sun Matias M.D. Primary Care Physician: Nona Philippe M.D. MEDICAL IMAGING REPORT This report is preliminary unless electronic signature is present EXAM Supine radiograph of the abdomen, 02/04/2017 HISTORY Dobbhoff tube placement today. GI bleeding. Intubation. Short of air, anemia, respiratory distress. FINDINGS Supine radiograph of the abdomen is presented. There is a flexible feeding tube terminating at level of distal stomach. Visualized portion of heart appears normal in size. Ill-defined patchy and linear densities in the partially visualized lungs bilaterally. Nonspecific appearance. There may be some underlying chronic interstitial change with superimposed patchy edema or pneumonitis. No dense air space disease is seen. The bowel gas pattern is normal. No free air. Prior vertebroplasty L1-L2. Mild levoscoliosis centered at L3. Extensive atherosclerotic arterial calcification. Dictated by... Dequan Hooper M.D. THIS IS AN ELECTRONICALLY VERIFIED REPORT Dequan Hooper M.D. at 02/05/2017 2:07 PM Calvin TD: 02/04/2017 16:49 JOB #: [id number] MEDICAL IMAGING REPORT Page 1 of 1 COPY
--- NOTE | ~2017-01-25 | CR72 ---
[facility] A Service of [facility] & [facility] RADIOLOGY TEXT RESULTS PATIENT: JOSE MCNAIR LOCATION: [address] : 31 UNIT #: [id number] AGE: [address]: Ganesh Chavez MD SEX: F ORDER DR: [id number] [facility] [address] [place], [place] [address] [id number] I MR#: [id number] Acc #: [id number] NAME: JOSE MCNAIR : 1930 SEX: F STUDY DATE/TIME: 02/05/2017 4:08 UNIT: [facility] ROOM: [facility] STUDY DESCRIPTION: CR Chest Single View Portable Attending Physician: Ganesh Chavez M.D. Ordering Physician: Sun Matias M.D. Primary Care Physician: Nona Philippe M.D. MEDICAL IMAGING REPORT This report is preliminary unless electronic signature is present EXAM Portable chest HISTORY Respiratory failure for 11 days. Weakness. FINDINGS Moderate bilateral predominately perihilar infiltrates have increased slightly compared to yesterday. Feeding tube has been advanced into the stomach and the tip is not included on this exam. ETT tip is approximately 4 cm above the bryan. Left IJ central line tip in the mid SVC. Dictated by... Deon Welch M.D. THIS IS AN ELECTRONICALLY VERIFIED REPORT eDon Welch M.D. at 02/06/2017 4:18 AM IRMA/zainab TD: 02/05/2017 09:18 JOB #: [id number] MEDICAL IMAGING REPORT Page 1 of 1 COPY
--- NOTE | ~2017-01-25 | A ---
[facility] Nutrition Therapy DATE: 01/26/17 Patient: JOSE MCNAIR Physician: ANDERA Address: [address] Room/Bed: [address] [place] [address], Zip: [place] [address] Admit Date: 01/25/17 Date of : 31 Height: 5 1 Weight: 109 49.6 NUTRITIONAL ASSESSMENT: REASON: PT SEEN FOR 2 NUTRITION RISK RE: PRESSURE ULCER/NON-HEALING WOUND + POOR PO INTAKE, ALSO CONSULT RECEIVED PT IS 86 Y.O. FEMALE ADMITTED FOR GI BLEED/SYMPTOMATIC ANEMIA PMH: CHRONIC BACK PAIN, DEGENERATIVE SPINAL DISEASE, HTN, HLD, RA, PUD, GERD, HX OF CHOLY Anthropometrics: 5'1", WT: 113# (51.3 KG), BMI: 21.3 Labs: CREAT: 0.5, CA+:7.2, ALB: 2.7 Meds: NACL, PROTONIX, PREDNISONE, FERROUD GLUCONATE, FOLIC ACID I/O & Bowel function: 940/331 Skin Integrity: STAGE 1 PRESSURE ULCER (L) COCCYX Estimated Nutrition Needs: INCREASED NEEDS 2' DECREASED PO INTAKE AND APPETITE, WEIGHT LOSS NOTED Assessment: CHART REVIEWED AND EVENTS NOTED. PT SEEN FOR 2 NUTRITION RISK POINTS RE: PRESSURE ULCER + POOR PO INTAKE, ALSO CONSULT RECEIVED. PT PLEASANT TO SPEAK WITH, CONFIRMS DECREASED PO INTAKE 2' DECREASED APPETITE PAST FEW DAYS, NOTES APPETITE "COMES AND GOES DEPENDING ON HOW I FEEL". PT DRINKS BOOST SHAKES AT HOME. PER BREAKFAST TRAY, PT TOOK BITES OF EGGS AND SAUSAGE AND SIPS OF ORANGE JUICE. PT REPORTS LOSING ~30# PAST 6 MONTHS/NOTES UBW IS ~135# (22# TOTAL)/SEVERE WEIGHT LOSS NOTED. THIS RD ENCOURAGED ADEQUATE KCAL, PROTEIN AND FLUID INTAKE FOR SKIN HEALING AND PREVENT FURTHER WEIGHT LOSS, PT AGREED TO ENSURE SHAKES TID, RD TO ORDER. PT REPORTED NO DIET QUESTIONS AT THIS TIME. RD TO FOLLOW HOSPITAL COURSE. Dx: UNINTENTIONAL WEIGHT LOSS R/T DECREASED PO INTAKE/APPETITTE, PMH AEB PT REPORT ABOVE, ~22# OR ~30# WEIGHT LOSS NOTED IN PAST 6 MONTHS. Intervention: 1. HEALTHY HEART DIET 2. RD CONSULT 3. ENSURE SHAKES TID Monitoring, Evaluation and Goals: 1. ORAL INTAKE; CONSUME/TOLERATE >50% OF MEALS AND SUPPLEMENT 2. WEIGHTS; PREVENT FURTHER WEIGHT LOSS; PROMOTE HEALTHY WEIGHT MAINTENANCE 3. LABS; WNL 4. SKIN; PROMOTE SKIN HEALING [facility] Nutrition Therapy DATE: 01/26/17 Patient: JOSE MCNAIR Physician: ANDREA Address: [address] Room/Bed: [address] [place] [address], Zip: [place] [address] Admit Date: 01/25/17 Date of : 31 Height: 5 1 Weight: 109 49.6 MONITOR: -PO INTAKE/APPETITE -WEIGHTS -SUPPLEMENT INTAKE Recommendations: 1. PLEASE ORDER CHOCOLATE ENSURE SHAKES BID W/MEALS FOR ADDITIONAL KCAL AND PROTEIN 2. APPRECIATE FAMILY AND STAFF TO ENCOURAGE ADEQUATE PO INTAKE 3. ADD MVI W/MINERAL + 100-200 MG VITAMIN C DAILY TO PT'S CURRENT MEDICATION REGIMEN 2' DECREASED PO INTAKE, ADVANCED AGE AND TO PROMOTE SKIN HEALING 4. PLEASE WEIGH q 3 DAYS FOR MONITORING PURPOSES RD WILL F/U PER PROTOCOL PT IS MODERATELY COMPROMISED Respectfully, FRANCIA WOODS MS, RD, LD [employer] [facility] [employer] cc: client file
--- NOTE | ~2017-01-25 | CT57 ---
[facility] A Service of [facility] & [facility] RADIOLOGY TEXT RESULTS PATIENT: JOSE MCNAIR LOCATION: [facility] 564-01 : 31 UNIT #: [id number] AGE: [address]: Ganesh Chavez MD SEX: F ORDER DR: [id number] [facility] [address] [place], [place] [address] [id number] I MR#: [id number] Acc #: [id number] NAME: JOSE MCNAIR : 1930 SEX: F STUDY DATE/TIME: 01/30/2017 15:43 UNIT: [facility] ROOM: [facility] STUDY DESCRIPTION: CT Chest Wo Cont Attending Physician: Ganesh Chavez M.D. Ordering Physician: Sun Matias M.D. Primary Care Physician: Nona Philippe M.D. MEDICAL IMAGING REPORT This report is preliminary unless electronic signature is present EXAM CT chest without contrast INDICATIONS Shortness of breath beginning January 24. TECHNIQUE CT chest performed without contrast. Coronal and sagittal reformatted images were obtained. This CT exam was performed with one or more of the following radiation dose reduction techniques: Automatic exposure control, adjustment of mA and/or kV according to patient size, and iterative reconstruction. Comparison with 05/23/2016. FINDINGS There is a small amount of ground-glass opacification in the medial portion of the right upper lobe. There is an irregular parenchymal density in the anterior right lower lobe, on image 103, measuring about 1.1 cm. There is some mild interstitial thickening in the right lower lobe and some patchy peribronchiolar ground-glass density. Tiny nodule adjacent to the pleural surface in the right lower lobe on image 70. There is minimal scarring/atelectasis in the bases of both lower lobes. There is some scattered tree-in-bud nodularity in the left lower lobe. Enlargement of the main pulmonary artery, which is nonspecific but can be seen with pulmonary arterial hypertension. No lymphadenopathy. Tortuous aorta. Small hiatal hernia. Limited imaging in the upper abdomen is unremarkable. Bone windows show changes from prior vertebral augmentation of L1. IMPRESSION There are patchy peribronchiolar ground-glass opacities in the right lower lobe. More inferiorly in the right lower lobe is a more solid 1.1 cm irregular parenchymal density. There is a small, ground-glass opacity medially in the right upper lobe and some minimal tree-in-bud nodularity STS. [facility] A Service of [facility] & [facility] RADIOLOGY TEXT RESULTS PATIENT: JOSE MCNAIR LOCATION: [facility] 564-01 : 31 UNIT #: [id number] AGE: [address]: Ganesh Chavez MD SEX: F ORDER DR: in the left lower lobe. Overall, I suspect these findings are probably infectious or inflammatory. However, follow up to clearing should be performed, particularly of the solid parenchymal density at the right base. A followup chest CT can be performed in 3 months to document clearing. Dictated by... Reji Patterson M.D. THIS IS AN ELECTRONICALLY VERIFIED REPORT Reji Patterson M.D. at 02/01/2017 7:57 AM SILVIA/muna TD: 01/30/2017 20:00 JOB #: [id number] MEDICAL IMAGING REPORT Page 1 of 1 COPY
--- NOTE | ~2017-01-25 | CO ---
Unit #: [id number] #: [id number] Patient: JOSE MCNAIR [id number] [address] [place], [place] [address] [id number] I MR#: [id number] NAME: JOSE MCNAIR ROOM: [facility] Age: 86 Sex: F Admission Date: 01/25/2017 : 1930 Attending Physician: Ganesh Chavez M.D. Primary Care Physician: Nona Philippe M.D. CONSULTATION REPORT REASON FOR CONSULTATION Low calcium level. 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 She came in with complaints of weakness, noted to have a hemoglobin of 7.9 and sent from the PCP office for shortness of breath and dyspnea with exertion. The calcium level noted to be 6.3. The patient is not on any calcium supplements. Vitamin D level is not known. The patient does not report vomiting, diarrhea, history of any nephrolithiasis. REVIEW OF SYSTEMS CVS: No chest pain. RESPIRATORY: As above. GI: No diarrhea. No vomiting. : No hematuria. No dysuria. 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 PAST SURGICAL HISTORY Significant for cholecystectomy, appendectomy, ovarian cyst excision, partial hysterectomy, left breast cyst excision, right lower extremity squamous cell carcinoma and excision. ALLERGIES Codeine. SOCIAL HISTORY Does not drink or smoke. FAMILY HISTORY Unremarkable for ESRD. PHYSICAL EXAMINATION GENERAL: The patient is awake, somewhat short of air. VITAL SIGNS: Blood pressure 127/59, heart rate is 88 per minute, temperature is 97.8. HEENT: Head is atraumatic. Extraocular movements are intact. NECK: Supple. There is no elevation of JVD. Unit #: [id number] #: [id number] Patient: JOSE MCNAIR CHEST: Clear. Air entry is equal bilaterally. Breathing is vesicular in nature with scant scattered rhonchi. CARDIOVASCULAR: S1 and S2 audible. ABDOMEN: Soft. There is no organomegaly. No guarding. No rigidity. No rebound tenderness. There is no edema. SUPERVISING FLOORPERSON: Motor system is intact. Cerebellar system is intact. DIAGNOSTIC STUDIES LABORATORY RESULTS: WBC 2.9, H and H 9.6 and 29.6 with a platelet count of 50. Sodium 133, potassium 3.7, chloride 105, CO2 21, glucose 79, BUN 15, creatinine 0.7, calcium 6.6, albumin is 1.9. IMPRESSION 1. Hypocalcemia, likely vitamin D deficiency with poor nutritional intake. I would check for hypoparathyroidism, unlikely hypercalciuria contributing to that. We will supplement calcium and also check the ionized calcium. The albumin is also quite low with poor nutritional status. 2. Chronic obstructive pulmonary disease. 3. Hypertension. 4. Monitor electrolytes and acid base. 5. Acute respiratory failure. We will follow the patient with you and follow workup and supplement calcium and recheck levels. Dictated by... Peter Matias M.D. RA/kj TD: 02/08/2017 18:10 JOB #: [id number] CONSULTATION REPORT Page 1 of 1 X Peter Matias MD CONSULTATION REPORT
--- NOTE | ~2017-01-25 | CT57 ---
[facility] A Service of [facility] & [facility] RADIOLOGY TEXT RESULTS PATIENT: JOSE MCNAIR LOCATION: [address]12 : 31 UNIT #: [id number] AGE: [address]: Ganesh Chavez MD SEX: F ORDER DR: [id number] [facility] [address] [place], [place] [address] [id number] I MR#: [id number] Acc #: [id number] NAME: JOSE MCNAIR : 1930 SEX: F STUDY DATE/TIME: 02/08/2017 18:00 UNIT: [facility] ROOM: [facility] STUDY DESCRIPTION: CT Chest Wo Cont Attending Physician: Ganesh Chavez M.D. Ordering Physician: Bry Rivero M.D. Primary Care Physician: Nona Philippe M.D. MEDICAL IMAGING REPORT This report is preliminary unless electronic signature is present EXAM Chest CT no contrast 02/08/2017 INDICATION 86-year-old female with shortness of air that began on January 24, . TECHNIQUE Noncontrast CT chest was performed and compared with 01/30/2017. This CT examination was performed with one or more of the following radiation dose reduction techniques: automatic exposure control, adjustment of mA and/or kV according to patient size, and iterative reconstruction. FINDINGS There is motion degradation. There are moderate to moderately large effusions, right slightly greater than left. Probable compressive atelectasis in the lung bases. There are new confluent ground-glass opacities in the upper lobes right greater than left with some lesser involvement of the middle lobe and lingula and the superior segments of the lower lobes, right greater than left. Imaging features suggest possibility of congestive heart failure and volume overload given associated interstitial prominence. Pneumonia also in the differential. Follow up to clearing recommended after appropriate therapy. There is a 3 mm micronodule in the left lower lobe not significantly changed from the prior study. If the patient is at high risk for malignancy, follow up in 1 year could be performed to document stability. No pneumothorax. There are low-attenuation lesions in the right thyroid lobe not significantly changed. These could be further assessed with non-emergent outpatient ultrasound. There is no axillary adenopathy. The main pulmonary artery is dilated suggestive of pulmonary arterial hypertension. Aorta demonstrates atherosclerotic change and is tortuous and ectatic. What may represent radiopaque oral contents within the stomach present. Correlate with any history of recent tablet or contrast ingestion. The stomach is STS. [facility] A Service of [facility] & [facility] RADIOLOGY TEXT RESULTS PATIENT: JOSE MCNAIR LOCATION: [facility]2-02 : 31 UNIT #: [id number] AGE: [address]: Ganesh Chavez MD SEX: F ORDER DR: not well distended or evaluated. There is a hiatal hernia. There is no axillary adenopathy. Included upper abdomen demonstrates no acute finding. Mild generalized anasarca. No suspicious bone lesion. Vertebroplasty changes present in the lumbar spine. IMPRESSION 1. Interval development of bilateral effusions, right slightly greater than left. There are interstitial changes in both lungs and ground-glass opacities that have developed bilaterally. Imaging features are nonspecific. This may reflect multifocal pneumonia. Possibility of volume overload also in the differential. The findings are slightly worse in the upper lobes bilaterally right greater than left. Follow up to clearing recommended. 2. 3 mm micronodule in the left lower lobe unchanged. See followup recommendations in the body of the report. 3. Pulmonary arterial hypertension. 4. Included upper abdomen demonstrates no acute finding. 5. Anasarca. STAT * RESULT Dictated by... Boogie Stevens M.D. THIS IS AN ELECTRONICALLY VERIFIED REPORT Boogie Stevens M.D. at 02/09/2017 9:26 PM LORETA/nayla TD: 02/09/2017 09:59 JOB #: [id number] MEDICAL IMAGING REPORT Page 1 of 1 COPY
--- NOTE | ~2017-01-25 | CR72 ---
[facility] A Service of [facility] RADIOLOGY TEXT RESULTS PATIENT: JOSE MCNAIR LOCATION: [address] : 31 UNIT #: [id number] AGE: [address]: Ganesh Chavez MD SEX: F ORDER DR: [id number] [facility] [address] [place], [place] [address] [id number] I MR#: [id number] Acc #: [id number] NAME: JOSE MCNAIR : 1930 SEX: F STUDY DATE/TIME: 02/04/2017 10:22 UNIT: [facility] ROOM: [facility] STUDY DESCRIPTION: CR Chest Single View Portable Attending Physician: Ganesh Chavez M.D. Ordering Physician: Sun Matias M.D. Primary Care Physician: Nona Philippe M.D. MEDICAL IMAGING REPORT This report is preliminary unless electronic signature is present EXAM Portable chest. INDICATIONS Endotracheal tube placement. COMPARISON 02/04/2017. FINDINGS Endotracheal tube tip lies approximately 2.6 cm above the bryan. There is a new left IJ central venous catheter with tip projecting over the region of the mid SVC. A Dobbhoff tube tip is in place. The tip projects below the bryan, likely in the mid esophagus. Stable bilateral infiltrates. Heart size stable. No appreciable pneumothorax. IMPRESSION 1. ET tube in satisfactory position. 2. Dobbhoff tube tip projects below the bryan, over the region of the mid esophagus. 3. Left IJ central venous catheter tip projects over the region of the mid SVC. No evidence for pneumothorax. Dictated by... Reji Patterson M.D. THIS IS AN ELECTRONICALLY VERIFIED REPORT Reji Patterson M.D. at 02/05/2017 6:59 AM ARS/gz TD: 02/04/2017 16:29 JOB #: [id number] [facility] A Service of [facility] & [facility] RADIOLOGY TEXT RESULTS PATIENT: JOSE MCNAIR LOCATION: [facility]-02 : 31 UNIT #: [id number] AGE: [address]: Ganesh Chavez MD SEX: F ORDER DR: MEDICAL IMAGING REPORT Page 1 of 1 COPY
--- NOTE | ~2017-01-25 | EKG ---
PATIENT: OJSE YEBOAH UNIT #: [id number] Ventricular Rate: 79 BPM Atrial Rate: 79 BPM P-R Interval: 176 ms QRS Duration: 62 ms Q-T Interval: 366 ms QTC Calculation(Bezet): 419 ms P Banks: 80 degrees Calculated R Banks: 17 degrees Calculated T Banks: 33 degrees Diagnosis Line: Sinus rhythm with Premature supraventricular Diagnosis Line: complexes Diagnosis Line: Otherwise normal ECG Diagnosis Line: Diagnosis Line: Confirmed by RONY MONTEZ MD ([id number]) on 01/25/2017 Diagnosis Line: 5:04:58 PM INTERPRETING MD: MELIDA GIRALDO
--- NOTE | ~2017-01-25 | CR72 ---
[facility] A Service of [facility] & [facility] RADIOLOGY TEXT RESULTS PATIENT: JOSE MCNAIR LOCATION: [address] : 31 UNIT #: [id number] AGE: [address]: Ganesh Chavez MD SEX: F ORDER DR: [id number] [facility] [address] [place], [place] [address] [id number] I MR#: [id number] Acc #: [id number] NAME: JOSE MCNAIR : 1930 SEX: F STUDY DATE/TIME: 02/09/2017 18:19 UNIT: [facility] ROOM: [facility] STUDY DESCRIPTION: CR Chest Single View Portable Attending Physician: Ganesh Chavez M.D. Ordering Physician: Sun Matias M.D. Primary Care Physician: Nona Philippe M.D. MEDICAL IMAGING REPORT This report is preliminary unless electronic signature is present EXAM Frontal chest 02/09/2017 INDICATION 86-year-old female with a history of GI bleed, anemia, shortness of air and weakness. Dobbhoff tube placement. TECHNIQUE Frontal chest performed and compared with 0514 hours same day. FINDINGS Left-sided central line tip is at the proximal SVC level. There is an enteric tube present and the tip is just distal to the bryan. Suggest advancement another 15-20 cm for placement at the level of the stomach with a followup radiograph to document appropriate positioning prior to usage. Cardiac silhouette is stable. Interval improvement of interstitial and alveolar opacities bilaterally. No pneumothorax. Postop changes of rotator cuff repair on the right. Right CP angle excluded from view. IMPRESSION 1. Interval improvement of interstitial and alveolar infiltrates bilaterally. No pneumothorax. 2. Enteric tube tip is just distal to the bryan and should be advanced another 15-20 cm towards the stomach with a followup radiograph to document appropriate positioning prior to usage. Dictated by... Boogie Stevens M.D. THIS IS AN ELECTRONICALLY VERIFIED REPORT Boogie Stevens M.D. at 02/10/2017 11:31 PM [facility] A Service of [facility] & [facility] RADIOLOGY TEXT RESULTS PATIENT: JOSE MCNAIR LOCATION: [facility]2-02 : 31 UNIT #: [id number] AGE: [address]: Ganesh Chavez MD SEX: F ORDER DR: LORETA/nayla TD: 02/10/2017 09:49 JOB #: [id number] MEDICAL IMAGING REPORT Page 1 of 1 COPY
--- NOTE | ~2017-01-25 | CR72 ---
[facility] A Service of [facility] & [facility] RADIOLOGY TEXT RESULTS PATIENT: JOSE MCNAIR LOCATION: [address] : 31 UNIT #: [id number] AGE: [address]: Ganesh Chavez MD SEX: F ORDER DR: [id number] [facility] [address] [place], [place] [address] [id number] I MR#: [id number] Acc #: [id number] NAME: JOSE MCNAIR : 1930 SEX: F STUDY DATE/TIME: 02/12/2017 6:10 UNIT: [facility] ROOM: [facility] STUDY DESCRIPTION: CR Chest Single View Portable Attending Physician: Ganesh Chavez M.D. Ordering Physician: Sun Matias M.D. Primary Care Physician: Nona Philippe M.D. MEDICAL IMAGING REPORT This report is preliminary unless electronic signature is present EXAM Portable chest 02/12/2017 HISTORY Respiratory failure for 18 days. GI bleeding and anemia. Squamous cell carcinoma of the lower extremities. Follow-up infiltrates. COMPARISON 02/09. FINDINGS This portable view of the chest shows no change in what appear to be right greater than left perihilar infiltrates. The heart size is normal. The central venous catheter is in good position. Dictated by... Mark Miranda M.D. THIS IS AN ELECTRONICALLY VERIFIED REPORT Mark Miranda M.D. at 02/12/2017 3:08 PM WILLIAM/liliana TD: 02/12/2017 08:45 JOB #: [id number] MEDICAL IMAGING REPORT Page 1 of 1 COPY
[2017-01-25 16:54] LABS: BASOPHIL% 0.8 % (0-2.5); EOSINOPHIL% 0.1 % (0.0-7.0); HEMATOCRIT 23.7 % (35.0-45.0); HEMOGLOBIN 7.4 gm/dL (12.0-16.0); LYMPHOCYTE# 0.2 X10e3 (1.0-3.5); LYMPHOCYTE% 3.1 % (17.0-45.0); MEAN CORPUSCULAR HEMOGLOBIN 31.7 PG (28-34); MEAN CORPUSCULAR HGB CONC 31.1 g/dL (30-36); MEAN PLATELET VOLUME 7.9 FL (6.5-11.5); MONOCYTE# 0.1 X10e3 (0-1.0); MONOCYTE% 1.7 % (3.0-12.0); NEUTROPHIL# 4.8 X10e3 (1.5-7.1); NEUTROPHIL% 94.3 % (40-75); PLATELET COUNT 131 X10e3 (140-420); RED BLOOD COUNT 2.32 X10e (3.90-5.30); RED CELL DISTRIBUTION WIDTH 25.9 % (11.0-15.5)
[2017-01-25 16:55] LABS: DIFF IND YES; WHITE BLOOD COUNT 5.1 X10e3 (4.0-10.5)
[2017-01-25] MEDS ORDERED: PATIENT'S PHARMACY (17:04)
[2017-01-25] MEDS ORDERED: CELECOXIB200 MG PO (17:04)
[2017-01-25] MEDS ORDERED: CEFDINIR300 M1 PO (17:05)
[2017-01-25] MEDS ORDERED: IRON325 MG PO (17:05)
[2017-01-25] MEDS ORDERED: TESSALON PERLE100 M1 PO (17:05)
[2017-01-25] MEDS ORDERED: HUMIBID-LA600 MG PO (17:06)
[2017-01-25] MEDS ORDERED: METHOTREXATE2.5 MG PO (17:06)
[2017-01-25] MEDS ORDERED: MORPHINE SULFAT15 MG PO (17:07)
[2017-01-25] MEDS ORDERED: PREDNISONE PO (17:07)
[2017-01-25] MEDS ORDERED: HYDROCODON-ACE1 EAC9 PO (17:07)
[2017-01-25 17:08] LABS: BILIRUBIN, DIRECT 0.4 mg/dL (0.0-0.2); BILIRUBIN,INDIRECT 0.3 mg/dL (0.0-0.9); BILIRUBIN,TOTAL 0.7 mg/dL (0.2-2.0); BUN/CREATININE RATIO 12.5; CALCIUM SERUM 7.4 mg/dL (8.4-10.2); CREATININE SERUM 0.8 mg/dL (0.6-1.4); GLOM FILT RATE Estimated 67.3 mL/min (>60); PROTEIN TOTAL SERUM 5.3 g/dL (6.0-8.3)
[2017-01-25] MEDS ORDERED: PANTOPRAZOLE SO40 MG PO (17:08)
[2017-01-25] MEDS ORDERED: ZOCOR PO (17:08)
[2017-01-25] MEDS ORDERED: FOLIC ACID1 MG PO (17:08)
[2017-01-25] MEDS ORDERED: LISINOPRIL PO (17:08)
[2017-01-25] MEDS ORDERED: NORVASC10 MG PO (17:08)
[2017-01-25] MEDS ORDERED: ARAVA10 MG PO (17:08)
[2017-01-25 17:09] LABS: POC - CKMB 1.1 ng/mL (0.0-7.9); POC - TROPONIN <0.05 ng/mL (<=0.05)
[2017-01-25 17:21] LABS: OVALOCYTES PRESENT; PLATELET ESTIMATE DECREASED (NORMAL); POIKILOCYTOSIS MOD
[2017-01-25 17:22] LABS: TEAR DROP CELLS PRESENT
[2017-01-25 17:23] LABS: ACANTHOCYTES PRESENT
[2017-01-25 18:28] LABS: POC - CKMB <1.0 ng/mL (0.0-7.9); POC - TROPONIN <0.05 ng/mL (<=0.05)
[2017-01-26 06:21] LABS: HEMATOCRIT 29.6 % (35.0-45.0); MEAN CORPUSCULAR HEMOGLOBIN 31.1 PG (28-34); MEAN PLATELET VOLUME 7.5 FL (6.5-11.5); RED BLOOD COUNT 3.14 X10e (3.90-5.30); RED CELL DISTRIBUTION WIDTH 23.4 % (11.0-15.5); WHITE BLOOD COUNT 3.7 X10e3 (4.0-10.5)
[2017-01-26 06:35] LABS: HEMOGLOBIN 9.8 gm/dL (12.0-16.0); MEAN CELL VOLUME 94.1 FL (83-96)
[2017-01-26 07:16] LABS: ALBUMIN SERUM 2.7 g/dL (3.5-5.0); BILIRUBIN,TOTAL 1.1 mg/dL (0.2-2.0); CALCIUM SERUM 7.2 mg/dL (8.4-10.2); CREATININE SERUM 0.5 mg/dL (0.6-1.4); GLOM FILT RATE Estimated 88.3 mL/min (>60); PROTEIN TOTAL SERUM 4.7 g/dL (6.0-8.3)
[2017-01-26 10:45] LABS: CK TOTAL 29 IU/L (26-140)
[2017-01-26 12:59] LABS: FOLATE (FOLIC ACID) 13.1 ng/mL (>5.8)
[2017-01-26 16:12] LABS: CK TOTAL 32 IU/L (26-140)
[2017-01-27 05:51] LABS: HEMATOCRIT 32.3 % (35.0-45.0); HEMOGLOBIN 10.4 gm/dL (12.0-16.0); MEAN CORPUSCULAR HEMOGLOBIN 30.6 PG (28-34); MEAN CORPUSCULAR HGB CONC 32.2 g/dL (30-36); MEAN PLATELET VOLUME 7.6 FL (6.5-11.5); RED BLOOD COUNT 3.4 X10e (3.90-5.30); RED CELL DISTRIBUTION WIDTH 24.5 % (11.0-15.5); WHITE BLOOD COUNT 3.3 X10e3 (4.0-10.5)
[2017-01-27 07:18] LABS: CALCIUM SERUM 7.4 mg/dL (8.4-10.2); CREATININE SERUM 0.4 mg/dL (0.6-1.4); POTASSIUM 4.1 mmol/L (3.5-5.1)
[2017-01-27 21:10] LABS: URINE APPEARANCE CLEAR; URINE BILIRUBIN NEG (NEG); URINE BLOOD NEG (NEG); URINE COLOR YELLOW; URINE GLUCOSE NEG (NEG); URINE KETONE NEG (NEG); URINE LEUKOCYTE ESTERASE NEG (NEG); URINE NITRATE NEG (NEG); URINE PH 6.5 (5-8); URINE PROTEIN NEG (NEG); URINE SPECIFIC GRAVITY 1.015 (1.003-1.035); URINE UROBILINOGEN 0.2 MG/DL (NEG)
[2017-01-27 21:16] LABS: CULTURE INDICATED? NO
[2017-01-28 05:36] LABS: HEMATOCRIT 34.2 % (35.0-45.0); HEMOGLOBIN 10.6 gm/dL (12.0-16.0); MEAN CELL VOLUME 97.8 FL (83-96); MEAN CORPUSCULAR HEMOGLOBIN 30.3 PG (28-34); MEAN PLATELET VOLUME 8.8 FL (6.5-11.5); RED BLOOD COUNT 3.5 X10e (3.90-5.30); RED CELL DISTRIBUTION WIDTH 24.3 % (11.0-15.5)
[2017-01-30 06:17] LABS: HEMATOCRIT 31.5 % (35.0-45.0); HEMOGLOBIN 10.3 gm/dL (12.0-16.0); MEAN CELL VOLUME 95.5 FL (83-96); MEAN CORPUSCULAR HEMOGLOBIN 31.1 PG (28-34); MEAN CORPUSCULAR HGB CONC 32.6 g/dL (30-36); MEAN PLATELET VOLUME 9.5 FL (6.5-11.5); RED BLOOD COUNT 3.3 X10e (3.90-5.30); RED CELL DISTRIBUTION WIDTH 23.3 % (11.0-15.5); WHITE BLOOD COUNT 5.5 X10e3 (4.0-10.5)
[2017-01-30 06:29] LABS: ALBUMIN SERUM 2.6 g/dL (3.5-5.0); BILIRUBIN,TOTAL 0.7 mg/dL (0.2-2.0); BUN/CREATININE RATIO 27.5; CALCIUM SERUM 7.2 mg/dL (8.4-10.2); CREATININE SERUM 0.4 mg/dL (0.6-1.4); POTASSIUM 3.9 mmol/L (3.5-5.1); PROTEIN TOTAL SERUM 4.7 g/dL (6.0-8.3)
[2017-01-31 09:38] LABS: HEMATOCRIT 32.8 % (35.0-45.0); HEMOGLOBIN 10.6 gm/dL (12.0-16.0); MEAN CELL VOLUME 96.3 FL (83-96); MEAN CORPUSCULAR HEMOGLOBIN 31.1 PG (28-34); MEAN CORPUSCULAR HGB CONC 32.2 g/dL (30-36); MEAN PLATELET VOLUME 8.9 FL (6.5-11.5); RED BLOOD COUNT 3.4 X10e (3.90-5.30); RED CELL DISTRIBUTION WIDTH 23.8 % (11.0-15.5); RETICULOCYTE 0.9 % (0.5-2.8)
[2017-01-31 10:02] LABS: BUN/CREATININE RATIO 15.71; CALCIUM SERUM 7.1 mg/dL (8.4-10.2); CREATININE SERUM 0.7 mg/dL (0.6-1.4); POTASSIUM 4.2 mmol/L (3.5-5.1)
[2017-02-01 05:31] LABS: HEMATOCRIT 29.6 % (35.0-45.0); HEMOGLOBIN 9.6 gm/dL (12.0-16.0); MEAN CELL VOLUME 95.4 FL (83-96); MEAN CORPUSCULAR HGB CONC 32.5 g/dL (30-36); MEAN PLATELET VOLUME 10.5 FL (6.5-11.5); RED BLOOD COUNT 3.1 X10e (3.90-5.30); RED CELL DISTRIBUTION WIDTH 24.4 % (11.0-15.5); WHITE BLOOD COUNT 2.9 X10e3 (4.0-10.5)
[2017-02-01 05:59] LABS: ALBUMIN SERUM 2.5 g/dL (3.5-5.0); BUN/CREATININE RATIO 18.33; CALCIUM SERUM 7.2 mg/dL (8.4-10.2); CREATININE SERUM 0.6 mg/dL (0.6-1.4); GLOM FILT RATE Estimated 83.1 mL/min (>60); POTASSIUM 3.6 mmol/L (3.5-5.1); PROTEIN TOTAL SERUM 4.4 g/dL (6.0-8.3)
[2017-02-02 07:03] LABS: HEMATOCRIT 33.1 % (35.0-45.0); HEMOGLOBIN 10.4 gm/dL (12.0-16.0); MEAN CELL VOLUME 95.8 FL (83-96); MEAN CORPUSCULAR HEMOGLOBIN 30.2 PG (28-34); MEAN CORPUSCULAR HGB CONC 31.6 g/dL (30-36); MEAN PLATELET VOLUME 9.3 FL (6.5-11.5); RED BLOOD COUNT 3.45 X10e (3.90-5.30); RED CELL DISTRIBUTION WIDTH 24.1 % (11.0-15.5); WHITE BLOOD COUNT 9.6 X10e3 (4.0-10.5)
[2017-02-02 09:50] LABS: URINE APPEARANCE CLEAR; URINE BILIRUBIN NEG (NEG); URINE BLOOD NEG (NEG); URINE COLOR DK YELLOW; URINE GLUCOSE NEG (NEG); URINE KETONE TRACE (NEG); URINE LEUKOCYTE ESTERASE 1+ (NEG); URINE NITRATE NEG (NEG); URINE PROTEIN TRACE (NEG); URINE UROBILINOGEN 0.2 MG/DL (NEG)
[2017-02-02 09:52] LABS: URBCS1 AUWI 0-2 /[HPF] (0-2); URINE BACTERIA AUWI 1+ (NEGATIVE); URINE SQUAMOUS EPITHELIAL CELL OCC /[HPF]
[2017-02-02 11:07] LABS: URINE TRANSITIONAL EPI CELLS OCCAS /[HPF]
[2017-02-03 00:50] LABS: URINE APPEARANCE CLEAR; URINE BILIRUBIN NEG (NEG); URINE BLOOD NEG (NEG); URINE COLOR DK YELLOW; URINE GLUCOSE NEG (NEG); URINE KETONE 1+ (NEG); URINE LEUKOCYTE ESTERASE NEG (NEG); URINE NITRATE NEG (NEG); URINE PROTEIN TRACE (NEG); URINE SPECIFIC GRAVITY 1.026 (1.003-1.035); URINE UROBILINOGEN 0.2 MG/DL (NEG)
[2017-02-03 05:36] LABS: ALBUMIN SERUM 1.9 g/dL (3.5-5.0); BILIRUBIN,TOTAL 0.8 mg/dL (0.2-2.0); BUN/CREATININE RATIO 21.42; CALCIUM SERUM 6.6 mg/dL (8.4-10.2); CREATININE SERUM 0.7 mg/dL (0.6-1.4); MAGNESIUM 1.5 mg/dL (1.6-3.0); POTASSIUM 3.7 mmol/L (3.5-5.1); PROTEIN TOTAL SERUM 3.6 g/dL (6.0-8.3)
[2017-02-03 07:31] LABS: BASOPHIL# 0.1 X10e3 (0-0.3); BASOPHIL% 0.6 % (0-2.5); EOSINOPHIL# 0.2 X10e3 (0-0.7); EOSINOPHIL% 1.7 % (0.0-7.0); HEMATOCRIT 28.2 % (35.0-45.0); LYMPHOCYTE# 0.9 X10e3 (1.0-3.5); LYMPHOCYTE% 7.6 % (17.0-45.0); MEAN CELL VOLUME 97.4 FL (83-96); MEAN CORPUSCULAR HEMOGLOBIN 30.9 PG (28-34); MEAN CORPUSCULAR HGB CONC 31.8 g/dL (30-36); MONOCYTE# 0.4 X10e3 (0-1.0); MONOCYTE% 3.8 % (3.0-12.0); NEUTROPHIL# 9.9 X10e3 (1.5-7.1); NEUTROPHIL% 86.3 % (40-75); RED BLOOD COUNT 2.89 X10e (3.90-5.30); RED CELL DISTRIBUTION WIDTH 23.3 % (11.0-15.5); WHITE BLOOD COUNT 11.5 X10e3 (4.0-10.5)
[2017-02-03 07:33] LABS: PLATELET COUNT 50 X10e3 (140-420)
[2017-02-03 07:34] LABS: DIFF IND YES
[2017-02-03 07:56] LABS: PLATELET ESTIMATE DECREASED (NORMAL)
[2017-02-03 07:59] LABS: OVALOCYTES PRESENT; POIKILOCYTOSIS MOD
[2017-02-03 08:00] LABS: BURR CELLS PRESENT
[2017-02-03 08:01] LABS: ACANTHOCYTES PRESENT
[2017-02-03 08:02] LABS: ANISOCYTOSIS SL; ELLIPTOCYTES PRESENT
[2017-02-04 05:36] LABS: HEMATOCRIT 27.7 % (35.0-45.0); HEMOGLOBIN 8.9 gm/dL (12.0-16.0); MEAN CELL VOLUME 96.9 FL (83-96); MEAN CORPUSCULAR HEMOGLOBIN 31.2 PG (28-34); MEAN CORPUSCULAR HGB CONC 32.2 g/dL (30-36); MEAN PLATELET VOLUME 10.5 FL (6.5-11.5); RED BLOOD COUNT 2.86 X10e (3.90-5.30); RED CELL DISTRIBUTION WIDTH 24.2 % (11.0-15.5); WHITE BLOOD COUNT 10.5 X10e3 (4.0-10.5)
[2017-02-04 06:07] LABS: CALCIUM SERUM 6.3 mg/dL (8.4-10.2); CREATININE SERUM 0.6 mg/dL (0.6-1.4); GLOM FILT RATE Estimated 83.1 mL/min (>60); POTASSIUM 4.2 mmol/L (3.5-5.1)
[2017-02-04 07:59] LABS: ARTERIAL BLD GAS O2 SATURATION 87.4 % (90.0-100.0); ARTERIAL BLOOD GAS HCO3 17.7 mmol/L; ARTERIAL BLOOD GAS PCO2 26.7 mmHg (35.0-45.0); ARTERIAL BLOOD GAS PO2 62.1 mmHg (80.0-100)
[2017-02-04 08:00] LABS: ARTERIAL BLOOD GAS ALLEN TEST NORMAL; ARTERIAL BLOOD GAS ART SITE RIGHT RADIAL; ARTERIAL BLOOD GAS DELIVERY NON REBREATHER MASK; ARTERIAL DRAW? YES
[2017-02-04 08:22] LABS: CK TOTAL 50 IU/L (26-140)
[2017-02-04 10:59] LABS: ARTERIAL BLD GAS O2 SATURATION 96.3 % (90.0-100.0); ARTERIAL BLOOD GAS HCO3 17.9 mmol/L; ARTERIAL BLOOD GAS MET HB 2.3 %sat (0.0-2.0); ARTERIAL BLOOD GAS PCO2 27.1 mmHg (35.0-45.0); ARTERIAL BLOOD GAS pH 7.428 (7.350-7.450)
[2017-02-04 11:03] LABS: ARTERIAL BLOOD GAS ART SITE LEFT BRACHIAL; ARTERIAL BLOOD GAS DELIVERY VENT; ARTERIAL BLOOD GAS VENT MODE AC; ARTERIAL DRAW? YES
[2017-02-05 04:04] LABS: ARTERIAL BLD GAS O2 SATURATION 93.8 % (90.0-100.0); ARTERIAL BLOOD GAS HCO3 18.9 mmol/L; ARTERIAL BLOOD GAS PCO2 26.9 mmHg (35.0-45.0); ARTERIAL BLOOD GAS PO2 90.7 mmHg (80.0-100); ARTERIAL BLOOD GAS pH 7.456 (7.350-7.450)
[2017-02-05 04:07] LABS: ARTERIAL BLOOD GAS ART SITE LEFT BRACHIAL; ARTERIAL BLOOD GAS DELIVERY VENT; ARTERIAL BLOOD GAS VENT MODE AC; ARTERIAL DRAW? YES
[2017-02-05 04:45] LABS: HEMATOCRIT 27.7 % (35.0-45.0); HEMOGLOBIN 8.8 gm/dL (12.0-16.0); MEAN CELL VOLUME 96.1 FL (83-96); MEAN CORPUSCULAR HEMOGLOBIN 30.5 PG (28-34); MEAN CORPUSCULAR HGB CONC 31.7 g/dL (30-36); MEAN PLATELET VOLUME 10.7 FL (6.5-11.5); RED BLOOD COUNT 2.88 X10e (3.90-5.30); RED CELL DISTRIBUTION WIDTH 24.3 % (11.0-15.5); WHITE BLOOD COUNT 7.1 X10e3 (4.0-10.5)
[2017-02-05 05:28] LABS: BUN/CREATININE RATIO 25.71; CREATININE SERUM 0.7 mg/dL (0.6-1.4); MAGNESIUM 1.6 mg/dL (1.6-3.0); PHOSPHOROUS 2.5 mg/dL (2.5-4.6)
[2017-02-05 05:39] LABS: CALCIUM SERUM 5.9 mg/dL (8.4-10.2)
[2017-02-05 08:43] LABS: ARTERIAL BLD GAS O2 SATURATION 92.8 % (90.0-100.0); ARTERIAL BLOOD GAS HCO3 18.8 mmol/L; ARTERIAL BLOOD GAS MET HB 2.2 %sat (0.0-2.0); ARTERIAL BLOOD GAS PCO2 26.3 mmHg (35.0-45.0); ARTERIAL BLOOD GAS PO2 80.3 mmHg (80.0-100); ARTERIAL BLOOD GAS pH 7.463 (7.350-7.450)
[2017-02-05 08:45] LABS: ARTERIAL BLOOD GAS ART SITE RIGHT RADIAL; ARTERIAL BLOOD GAS DELIVERY VENT; ARTERIAL BLOOD GAS VENT MODE CPAP; ARTERIAL DRAW? YES
[2017-02-06 05:42] LABS: BASOPHIL# 0.1 X10e3 (0-0.3); BASOPHIL% 0.6 % (0-2.5); BUN/CREATININE RATIO 26.25; CALCIUM SERUM 6.2 mg/dL (8.4-10.2); CREATININE SERUM 0.8 mg/dL (0.6-1.4); GLOM FILT RATE Estimated 67.3 mL/min (>60); HEMATOCRIT 27.4 % (35.0-45.0); LYMPHOCYTE# 0.9 X10e3 (1.0-3.5); LYMPHOCYTE% 7.2 % (17.0-45.0); MEAN CELL VOLUME 93.9 FL (83-96); MEAN CORPUSCULAR HEMOGLOBIN 30.9 PG (28-34); MEAN PLATELET VOLUME 10.9 FL (6.5-11.5); MONOCYTE# 0.6 X10e3 (0-1.0); MONOCYTE% 4.7 % (3.0-12.0); NEUTROPHIL# 10.8 X10e3 (1.5-7.1); NEUTROPHIL% 87.5 % (40-75); PLATELET COUNT 156 X10e3 (140-420); POTASSIUM 3.5 mmol/L (3.5-5.1); RED BLOOD COUNT 2.92 X10e (3.90-5.30)
[2017-02-06 05:47] LABS: WHITE BLOOD COUNT 12.4 X10e3 (4.0-10.5)
[2017-02-06 05:48] LABS: DIFF IND YES
[2017-02-06 06:24] LABS: ACANTHOCYTES PRESENT; BURR CELLS PRESENT; NUCLEATED RED BLOOD CELL 1 /100 (0); PLATELET ESTIMATE NORMAL (NORMAL); POLYCHROMASIA MOD; SCHISTOCYTES PRESENT
[2017-02-06 06:25] LABS: HYPOCHROMIA SL
[2017-02-06 19:58] LABS: URINE APPEARANCE CLEAR; URINE BILIRUBIN NEG (NEG); URINE BLOOD NEG (NEG); URINE COLOR YELLOW; URINE GLUCOSE NEG (NEG); URINE KETONE NEG (NEG); URINE LEUKOCYTE ESTERASE NEG (NEG); URINE NITRATE NEG (NEG); URINE PROTEIN NEG (NEG); URINE SPECIFIC GRAVITY 1.015 (1.003-1.035); URINE UROBILINOGEN 0.2 MG/DL (NEG)
[2017-02-06 20:02] LABS: POTASSIUM,URINE RANDOM 19 mmol/L; SODIUM URINE RANDOM 74 mmol/L
[2017-02-06 20:03] LABS: CULTURE INDICATED? NO
[2017-02-07 05:43] LABS: MEAN CORPUSCULAR HGB CONC 32.5 g/dL (30-36); RED BLOOD COUNT 2.43 X10e (3.90-5.30)
[2017-02-07 06:21] LABS: ALBUMIN SERUM 1.9 g/dL (3.5-5.0); BILIRUBIN,TOTAL 0.5 mg/dL (0.2-2.0); BUN/CREATININE RATIO 26.66; CALCIUM SERUM 6.3 mg/dL (8.4-10.2); CREATININE SERUM 0.9 mg/dL (0.6-1.4); GLOM FILT RATE Estimated 58.3 mL/min (>60); MAGNESIUM 1.7 mg/dL (1.6-3.0); POTASSIUM 4.3 mmol/L (3.5-5.1); PROTEIN TOTAL SERUM 3.6 g/dL (6.0-8.3)
[2017-02-07 07:08] LABS: HEMATOCRIT 24.8 % (35.0-45.0); HEMOGLOBIN 8.1 gm/dL (12.0-16.0); MEAN CELL VOLUME 93.2 FL (83-96); MEAN CORPUSCULAR HEMOGLOBIN 30.3 PG (28-34); RED CELL DISTRIBUTION WIDTH 24.3 % (11.0-15.5)
[2017-02-08 05:50] LABS: HEMATOCRIT 24.4 % (35.0-45.0); HEMOGLOBIN 7.9 gm/dL (12.0-16.0); MEAN CELL VOLUME 93.2 FL (83-96); MEAN CORPUSCULAR HGB CONC 32.2 g/dL (30-36); MEAN PLATELET VOLUME 10.1 FL (6.5-11.5); RED BLOOD COUNT 2.62 X10e (3.90-5.30); RED CELL DISTRIBUTION WIDTH 23.7 % (11.0-15.5); WHITE BLOOD COUNT 8.9 X10e3 (4.0-10.5)
[2017-02-08 06:28] LABS: BUN/CREATININE RATIO 18.33; CALCIUM SERUM 7.2 mg/dL (8.4-10.2); CREATININE SERUM 1.2 mg/dL (0.6-1.4); GLOM FILT RATE Estimated 41.2 mL/min (>60); MAGNESIUM 2.1 mg/dL (1.6-3.0); POTASSIUM 4.2 mmol/L (3.5-5.1)
[2017-02-09 04:37] LABS: BASOPHIL% 0.2 % (0-2.5); HEMATOCRIT 22.7 % (35.0-45.0); HEMOGLOBIN 7.4 gm/dL (12.0-16.0); LYMPHOCYTE# 0.6 X10e3 (1.0-3.5); LYMPHOCYTE% 6.6 % (17.0-45.0); MEAN CELL VOLUME 92.6 FL (83-96); MEAN CORPUSCULAR HEMOGLOBIN 30.2 PG (28-34); MEAN CORPUSCULAR HGB CONC 32.7 g/dL (30-36); MEAN PLATELET VOLUME 9.7 FL (6.5-11.5); MONOCYTE# 0.4 X10e3 (0-1.0); MONOCYTE% 4.4 % (3.0-12.0); NEUTROPHIL# 7.8 X10e3 (1.5-7.1); NEUTROPHIL% 88.8 % (40-75); PLATELET COUNT 237 X10e3 (140-420); RED BLOOD COUNT 2.45 X10e (3.90-5.30); RED CELL DISTRIBUTION WIDTH 23.1 % (11.0-15.5); WHITE BLOOD COUNT 8.8 X10e3 (4.0-10.5)
[2017-02-09 04:39] LABS: DIFF IND NO
[2017-02-09 04:58] LABS: BUN/CREATININE RATIO 18.46; CALCIUM SERUM 6.9 mg/dL (8.4-10.2); CREATININE SERUM 1.3 mg/dL (0.6-1.4); GLOM FILT RATE Estimated 37.4 mL/min (>60); MAGNESIUM 1.9 mg/dL (1.6-3.0); PHOSPHOROUS 2.8 mg/dL (2.5-4.6); POTASSIUM 3.9 mmol/L (3.5-5.1)
[2017-02-09 18:15] LABS: BUN/CREATININE RATIO 16.42; CALCIUM SERUM 6.9 mg/dL (8.4-10.2); CREATININE SERUM 1.4 mg/dL (0.6-1.4); GLOM FILT RATE Estimated 34.2 mL/min (>60); MAGNESIUM 1.9 mg/dL (1.6-3.0); POTASSIUM 3.7 mmol/L (3.5-5.1)
[2017-02-10 06:23] LABS: BUN/CREATININE RATIO 15.33; CREATININE SERUM 1.5 mg/dL (0.6-1.4); GLOM FILT RATE Estimated 31.5 mL/min (>60); MAGNESIUM 1.7 mg/dL (1.6-3.0); POTASSIUM 3.7 mmol/L (3.5-5.1)
[2017-02-10 09:28] LABS: BASOPHIL% 0.3 % (0-2.5); HEMOGLOBIN 8.1 gm/dL (12.0-16.0); LYMPHOCYTE# 0.8 X10e3 (1.0-3.5); LYMPHOCYTE% 5.9 % (17.0-45.0); MEAN CELL VOLUME 92.4 FL (83-96); MEAN CORPUSCULAR HEMOGLOBIN 29.9 PG (28-34); MEAN CORPUSCULAR HGB CONC 32.3 g/dL (30-36); MEAN PLATELET VOLUME 9.1 FL (6.5-11.5); MONOCYTE# 0.5 X10e3 (0-1.0); NEUTROPHIL# 11.6 X10e3 (1.5-7.1); NEUTROPHIL% 89.8 % (40-75); PLATELET COUNT 324 X10e3 (140-420); RED BLOOD COUNT 2.71 X10e (3.90-5.30); RED CELL DISTRIBUTION WIDTH 23.5 % (11.0-15.5)
[2017-02-10 09:31] LABS: DIFF IND NO
[2017-02-11 06:49] LABS: BASOPHIL% 0.1 % (0-2.5); HEMATOCRIT 24.4 % (35.0-45.0); HEMOGLOBIN 7.8 gm/dL (12.0-16.0); LYMPHOCYTE# 0.9 X10e3 (1.0-3.5); LYMPHOCYTE% 5.5 % (17.0-45.0); MEAN CELL VOLUME 92.3 FL (83-96); MEAN CORPUSCULAR HEMOGLOBIN 29.4 PG (28-34); MEAN CORPUSCULAR HGB CONC 31.8 g/dL (30-36); MEAN PLATELET VOLUME 9.2 FL (6.5-11.5); MONOCYTE# 0.7 X10e3 (0-1.0); MONOCYTE% 4.7 % (3.0-12.0); NEUTROPHIL% 89.7 % (40-75); PLATELET COUNT 290 X10e3 (140-420); RED BLOOD COUNT 2.64 X10e (3.90-5.30); RED CELL DISTRIBUTION WIDTH 23.3 % (11.0-15.5); WHITE BLOOD COUNT 15.6 X10e3 (4.0-10.5)
[2017-02-11 07:04] LABS: DIFF IND YES
[2017-02-11 07:14] LABS: ALKALINE PHOSPHATASE 60 U/L (32-92); ALT (SGPT) 16 U/L (10-40); AST (SGOT) 26 U/L (10-42); BILIRUBIN,TOTAL <0.1 mg/dL (0.2-2.0); BLOOD UREA NITROGEN 23 mg/dL (9-23); BUN/CREATININE RATIO 16.42; CALCIUM SERUM 6.8 mg/dL (8.4-10.2); CARBON DIOXIDE 19 mmol/L (22-31); CHLORIDE 98 mmol/L (100-111); CREATININE SERUM 1.4 mg/dL (0.6-1.4); GLOM FILT RATE Estimated 34.2 mL/min (>60); GLUCOSE FASTING 79 mg/dL (70-110); PHOSPHOROUS 3.5 mg/dL (2.5-4.6); POTASSIUM 3.3 mmol/L (3.5-5.1); PROTEIN TOTAL SERUM 3.7 g/dL (6.0-8.3); SODIUM 129 mmol/L (135-145)
[2017-02-11 07:22] LABS: NUCLEATED RED BLOOD CELL 2 /100 (0); PLATELET ESTIMATE NORMAL (NORMAL); SCHISTOCYTES PRESENT
[2017-02-12 04:22] LABS: HEMATOCRIT 26.3 % (35.0-45.0); HEMOGLOBIN 8.6 gm/dL (12.0-16.0); MEAN CELL VOLUME 91.9 FL (83-96); MEAN CORPUSCULAR HEMOGLOBIN 30.2 PG (28-34); MEAN CORPUSCULAR HGB CONC 32.8 g/dL (30-36); MEAN PLATELET VOLUME 9.3 FL (6.5-11.5); RED BLOOD COUNT 2.86 X10e (3.90-5.30); RED CELL DISTRIBUTION WIDTH 22.9 % (11.0-15.5); WHITE BLOOD COUNT 16.8 X10e3 (4.0-10.5)
[2017-02-12 04:42] LABS: BUN/CREATININE RATIO 16.92; CALCIUM SERUM 6.6 mg/dL (8.4-10.2); CREATININE SERUM 1.3 mg/dL (0.6-1.4); GLOM FILT RATE Estimated 37.4 mL/min (>60); POTASSIUM 4.2 mmol/L (3.5-5.1)
[2017-02-13 08:26] LABS: BASOPHIL# 0.1 X10e3 (0-0.3); BASOPHIL% 0.4 % (0-2.5); HEMOGLOBIN 8.1 gm/dL (12.0-16.0); LYMPHOCYTE# 0.3 X10e3 (1.0-3.5); LYMPHOCYTE% 1.4 % (17.0-45.0); MEAN CELL VOLUME 92.9 FL (83-96); MEAN CORPUSCULAR HEMOGLOBIN 30.1 PG (28-34); MEAN CORPUSCULAR HGB CONC 32.4 g/dL (30-36); MEAN PLATELET VOLUME 7.5 FL (6.5-11.5); MONOCYTE# 0.5 X10e3 (0-1.0); MONOCYTE% 1.9 % (3.0-12.0); NEUTROPHIL# 23.6 X10e3 (1.5-7.1); NEUTROPHIL% 96.3 % (40-75); PLATELET COUNT 313 X10e3 (140-420); RED BLOOD COUNT 2.69 X10e (3.90-5.30); RED CELL DISTRIBUTION WIDTH 23.6 % (11.0-15.5); WHITE BLOOD COUNT 24.5 X10e3 (4.0-10.5)
[2017-02-13 08:28] LABS: DIFF IND YES
[2017-02-13 08:48] LABS: CALCIUM SERUM 6.6 mg/dL (8.4-10.2); CREATININE SERUM 1.5 mg/dL (0.6-1.4); GLOM FILT RATE Estimated 31.5 mL/min (>60); POTASSIUM 3.9 mmol/L (3.5-5.1)
[2017-02-13 09:07] LABS: NUCLEATED RED BLOOD CELL 8 /100 (0)
[2017-02-13 09:08] LABS: PLATELET ESTIMATE NORMAL (NORMAL)
[2017-02-13 09:13] LABS: ACANTHOCYTES PRESENT
[2017-02-13 09:14] LABS: BURR CELLS PRESENT; POIKILOCYTOSIS MOD
[2017-02-13 13:09] LABS: CALCIUM (PTHINTACT) 7.1 mg/dL (8.6-10.4)
[2017-02-14 10:18] LABS: HISTO AG URINE SPECIMEN Urine (())
== END 2017-02-13 15:44 | DRG 987 ==
LOC: CED 16:03 → CEDOF 18:01 → C5C 18:01 → CED 18:49 → CEDOF 18:49 → C5C 18:49 → CEDOF 19:53 → C5C 19:53 → CICCU3 02-02 12:00 → C3A PCU 02-04 05:51 → CICCU2 02-04 07:59
PROVIDERS: Emergency Medicine; Family Medicine; Hospitalist; Internal Medicine; Internal Medicine Infectious Disease; Internal Medicine Medical Oncology; Internal Medicine Nephrology; Internal Medicine Pulmonary Disease; Nurse Practitioner
PROC: 30233N1 Transfusion of Nonautologous Red Blood Cells into Peripheral Vein, Percutaneous Approach (ICD-10-PCS; principal; 2017-01-25)
PROC: B246YZZ Ultrasonography of Right and Left Heart using Other Contrast (ICD-10-PCS; 2017-01-26)
PROC: 0DB58ZX Excision of Esophagus, Via Natural or Artificial Opening Endoscopic, Diagnostic (ICD-10-PCS; 2017-01-31)
PROC: 0DB68ZX Excision of Stomach, Via Natural or Artificial Opening Endoscopic, Diagnostic (ICD-10-PCS; 2017-01-31)
PROC: 05H333Z Insertion of Infusion Device into Right Innominate Vein, Percutaneous Approach (ICD-10-PCS; 2017-02-01)
PROC: B54MZZA Ultrasonography of Right Upper Extremity Veins, Guidance (ICD-10-PCS; 2017-02-01)
PROC: 0B9F8ZX Drainage of Right Lower Lung Lobe, Via Natural or Artificial Opening Endoscopic, Diagnostic (ICD-10-PCS; 2017-02-04)
PROC: 05HN33Z Insertion of Infusion Device into Left Internal Jugular Vein, Percutaneous Approach (ICD-10-PCS; 2017-02-04)
PROC: B544ZZA Ultrasonography of Left Jugular Veins, Guidance (ICD-10-PCS; 2017-02-04)
DX: D64.9 Anemia, unspecified (principal); I50.31 Acute diastolic (congestive) heart failure; J96.01 Acute respiratory failure with hypoxia; J69.0 Pneumonitis due to inhalation of food and vomit; R65.20 Severe sepsis without septic shock; G92 Toxic encephalopathy; A41.9 Sepsis, unspecified organism; N17.9 Acute kidney failure, unspecified; K22.10 Ulcer of esophagus without bleeding; E87.2 Acidosis; E87.1 Hypo-osmolality and hyponatremia; E44.0 Moderate protein-calorie malnutrition; I11.0 Hypertensive heart disease with heart failure; Z88.5 Allergy status to narcotic agent; M06.9 Rheumatoid arthritis, unspecified; K21.9 Gastro-esophageal reflux disease without esophagitis; M54.9 Dorsalgia, unspecified; Z90.49 Acquired absence of other specified parts of digestive tract; Z90.710 Acquired absence of both cervix and uterus; E55.9 Vitamin D deficiency, unspecified; K29.70 Gastritis, unspecified, without bleeding; K64.8 Other hemorrhoids; D69.6 Thrombocytopenia, unspecified; E87.6 Hypokalemia; I27.2 Other secondary pulmonary hypertension; Z66 Do not resuscitate; I48.91 Unspecified atrial fibrillation; K59.00 Constipation, unspecified; K20.8 Other esophagitis; E78.5 Hyperlipidemia, unspecified
CPT/HCPCS: 36415; 36430; 36600; 70450; 71010; 71020; 71250; 74000; 74177; 80048; 80053; 80061; 80076; 81003; 82308; 82310; 82330; 82550; 82553; 82607; 82652; 82728; 82746; 82803; 82947; 83540; 83550; 83605; 83615; 83735; 83880; 83970; 84100; 84133; 84300; 84443; 84484; 85025; 85027; 85044; 86146; 86850; 86900; 86901; 86923; 87040; 87070; 87086; 87102; 87106; 87116; 87205; 87206; 87305; 87385; 87493; 87798; 88108; 88305; 88312; 89190; 93005; 93306; 94002; 94003; 94640; 94660; 94760; 94761; 97110; 97116; 97163; 97164; 97165; 97168; 97530; 97535; 99285; C9113; G8978-GP; G8979-GP; G8987-GO; G8988-GO; J0133; J0282; J0330; J0610; J0692; J0885; J1447; J1450; J1650; J1815; J1940; J2020; J2185; J2250; J2270; J2405; J2920; J3010; J3370; J3465; J3475; P9016; Q4081; Q9967

== ENCOUNTER 2017-02-13 16:01 | Inpatient (IN) | payer OTHER ==
--- NOTE | ~2017-02-13 | HP ---
Unit #: [id number] #: [id number] Patient: JOSE MCNAIR [id number] [address] [place], [place] [address] [id number] I MR#: [id number] NAME: JOSE MCNAIR ROOM: 471 Age: 86 Sex: F Admission Date: 02/13/2017 : 1930 Attending Physician: Christiano Covarrubias M.D. Primary Care Physician: Nona Philippe M.D. HISTORY AND PHYSICAL DATE OF SERVICE February 14, 2017. ADMITTING DIAGNOSIS Comfort care. HISTORY OF PRESENT ILLNESS This is a very pleasant 86-year-old female with past medical history significant for rheumatoid arthritis on immunosuppressive medication, who presented to the hospital initially for evaluation of nausea, vomiting, and weakness. 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 Patient was intubated for 24 hours at some point and then she was extubated to high level oxygen and BiPAP. Her condition declined progressively during her admission with lack of appetite and no nutrition. She went in renal failure and pulmonary edema. A lengthy discussion was held with the patient's son and daughters, who stated that the patient never wanted any of these aggressive and prolonged measurements. Family eventually decided to pursue comfort care. PAST MEDICAL HISTORY 1. Chronic anemia. 2. Hypertension. 3. Hyperlipidemia. 4. Rheumatoid arthritis. PAST SURGICAL HISTORY 1. Cholecystectomy. 2. Appendectomy. 3. Bronchoscopy. ALLERGIES Codeine. FAMILY HISTORY Coronary artery disease. SOCIAL HISTORY No history of alcohol, drug abuse, or smoking. PHYSICAL EXAMINATION GENERAL: The patient is lethargic but appeared comfortable. HEENT: Atraumatic, normocephalic. PERRLA. EOMI. Unit #: [id number] #: [id number] Patient: JOSE MCNAIR NECK: Supple. No JVD. CHEST: Bilateral rhonchi. HEART: S1, S2. Systolic murmur but no gallops or rubs. ABDOMEN: Soft, nontender. Bowel sound is positive. EXTREMITIES: Plus 1 edema. SKIN: No rashes. CENTRAL NERVOUS SYSTEM: Patient is lethargic but no focal weakness. She arouses to verbal stimuli. DIAGNOSTIC STUDIES Labs and other tests unavailable as patient is comfort care now. ASSESSMENT 1. Acute hypoxic respiratory failure. 2. PCP pneumonia. 3. HSV esophagitis. 4. Malnutrition. 5. Rheumatoid arthritis. 6. Acute kidney injury. PLAN Comfort care measurement. Family satisfied with her current care. She is still on oxygen, which family prefers to keep for the time being. However, I suggested to wean oxygen off to avoid prolonging her inevitable outcome. Dictated by Janette Pittman TD: 02/15/2017 12:46 JOB #: [id number] HISTORY AND PHYSICAL Page 1 of 1 X CAMMIE RONQUILLO MD X HISTORY AND PHYSICAL
[~2017-02-13 16:01] MED LIST changes: +CEFDINIR300 M1 PO; +CELECOXIB200 MG PO; +HUMIBID-LA600 MG PO; +IRON325 MG PO; +LISINOPRIL PO; +PANTOPRAZOLE SO40 MG PO; +PATIENT'S PHARMACY; +TESSALON PERLE100 M1 PO; +ZOCOR PO
== END 2017-02-16 02:50 | disposition expired | DRG 177 ==
LOC: C4C 16:01 → CICCU2 16:01 → C4C 18:30
DX: B59 Pneumocystosis (principal); J96.01 Acute respiratory failure with hypoxia; N17.9 Acute kidney failure, unspecified; J81.1 Chronic pulmonary edema; E46 Unspecified protein-calorie malnutrition; Z68.20 Body mass index [BMI] 20.0-20.9, adult; M06.9 Rheumatoid arthritis, unspecified; K20.8 Other esophagitis; Z51.5 Encounter for palliative care; I10 Essential (primary) hypertension; E78.5 Hyperlipidemia, unspecified; Z90.49 Acquired absence of other specified parts of digestive tract; Z88.5 Allergy status to narcotic agent; Z82.49 Family history of ischemic heart disease and other diseases of the circulatory system
CPT/HCPCS: J2060; J2270